=== PATIENT | female | born 1935 | race Caucasian/White ===

== ENCOUNTER → 2018-07-09 08:09 | Outpatient (CLI) | payer OTHER, SELFPAY ==
[2018-07-09 09:07] LABS: Add Manual Diff / Slide Review NO; Basophils Absolute Auto 100 /uL (0-100); Basophils Percent Auto 0.9 % (0-2); Eosinophils Absolute Auto 200 /uL (0-450); Eosinophils Percent Auto 2.5 % (2-4); Hematocrit 37.8 % (36-46); Hemoglobin 12.6 g/dL (12.0-16.0); Lymphocytes Absolute Auto 1200 /uL (1100-4500); Lymphocytes Percent Auto 20.7 % (25-40); Mean Corpuscular HGB Conc 33.4 % (30-36); Mean Corpuscular Hemoglobin 32.3 PG (26-34); Mean Corpuscular Volume 96.8 fL (80-100); Monocytes Absolute Auto 400 /uL (0-900); Neutrophils Absolute Auto 4200 /uL (1500-7000); Neutrophils Percent Auto 69.9 % (50-75); Platelet Count 195 X10^3/uL (150-400); Red Blood Cell Count 3.91 X10^6/uL (4.0-5.2); Red Cell Distribution Width 14.2 % (11.6-14.8)
[2018-07-09 09:10] LABS: Hemoglobin A1C% w Est Avg Glu 5.6 % (4.0-6.0)
[2018-07-09 09:49] LABS: Alanine Aminotransferase 17 IU/L (9-52); Albumin 4.1 g/dL (3.5-5.0); Albumin Globulin Ratio 1.3 (1.0-2.8); Alkaline Phosphatase 61 U/L (38-126); Aspartate Aminotransferase 28 IU/L (14-36); Bilirubin Total 1.7 mg/dL (0.2-1.3); Blood Urea Nitrogen 21 mg/dL (7-17); Calcium 9.4 mg/dL (8.4-10.2); Carbon Dioxide 32 mmol/L (22-32); Chloride 100 mmol/L (98-107); Cholesterol 129 mg/dL (140-199); Estimated Glomerular Filt Rate > 60.0 mL/min (>60); Globulin 3.1 g/dL (1.7-4.1); Glucose 87 mg/dL (80-110); HDL Cholesterol 58 mg/dL (40-60); HEMOLYSIS < 15 (0-50); LDL Cholesterol Calculated 58 mg/dL (<100); Potassium 3.4 mmol/L (3.4-5.1); Sodium 140 mmol/L (137-145); Total Protein 7.2 g/dL (6.3-8.2); Triglycerides 67 mg/dL (35-150)
== END ==
PROVIDERS: PCP Family Medicine; Visit Provider Family Medicine
DX: I10 Essential (primary) hypertension (principal); I63.9 Cerebral infarction, unspecified; I69.351 Hemiplegia and hemiparesis following cerebral infarction affecting right dominant side
CPT/HCPCS: 36415; 80053; 80061; 83036; 84443; 85025

== ENCOUNTER → 2018-11-16 15:06 | Outpatient (CLI) | payer OTHER, SELFPAY | PROVIDERS: PCP Family Medicine; Visit Provider Family Medicine | DX: R35.0 Frequency of micturition (principal) | CPT/HCPCS: 87077; 87086; 87147 ==

== ENCOUNTER → 2018-12-07 14:49 | Outpatient (CLI) | payer OTHER, SELFPAY ==
[2018-12-07 15:22] LABS: Hematocrit 36.9 % (36-46); Hemoglobin 12.6 g/dL (12.0-16.0); Mean Corpuscular HGB Conc 34.1 % (30-36); Mean Corpuscular Hemoglobin 32.8 PG (26-34); Platelet Count 213 X10^3/uL (150-400); Red Blood Cell Count 3.84 X10^6/uL (4.0-5.2); White Blood Cell Count 5.2 X10^3/uL (4.5-11.0)
[2018-12-07 15:23] LABS: Appearance Urine UA CLEAR; Bilirubin Urine UA NEGATIVE (NEGATIVE); Color Urine UA YELLOW; Glucose Urine UA NEGATIVE (Negative); Ketones Urine UA TRACE (NEGATIVE); Leukocyte Esterase Urine UA TRACE (NEGATIVE); Nitrite Urine UA NEGATIVE (Negative); Occult Blood Urine UA NEGATIVE (Negative); Protein Urine UA NEGATIVE (Negative); Specific Gravity Urine UA 1.015 (1.000-1.035)
[2018-12-07 15:35] LABS: pH Urine UA 6.5 (4.5-8.0)
[2018-12-07 15:36] LABS: Bacteria Urine Occasional (0-1); Culture Indicated Urine Cult Not Indicated; RBC Urine 1-5/HPF (0-5/HPF); Squamous Epithelial Cell Urine 0-1 /HPF (0-5/HPF); WBC Urine 1-5/HPF (0-5/HPF)
[2018-12-07 15:52] LABS: Neutrophils Absolute Manual 2912 /uL (3000-5900); RBC Morphology Normal Morphology; Total Cells Counted 100
[2018-12-07 16:06] LABS: Alanine Aminotransferase 20 IU/L (9-52); Albumin 4.1 g/dL (3.5-5.0); Albumin Globulin Ratio 1.5 (1.0-2.8); Alkaline Phosphatase 64 U/L (38-126); Aspartate Aminotransferase 28 IU/L (14-36); Bilirubin Total 1.6 mg/dL (0.2-1.3); Blood Urea Nitrogen 24 mg/dL (7-17); Calcium 9.7 mg/dL (8.4-10.2); Carbon Dioxide 33 mmol/L (22-32); Chloride 100 mmol/L (98-107); Cholesterol 121 mg/dL (140-199); Estimated Glomerular Filt Rate > 60.0 mL/min (>60); Globulin 2.8 g/dL (1.7-4.1); Glucose 98 mg/dL (80-110); HDL Cholesterol 63 mg/dL (40-60); HEMOLYSIS < 15 (0-50); LDL Cholesterol Calculated 41 mg/dL (<100); Potassium 3.1 mmol/L (3.4-5.1); Sodium 139 mmol/L (137-145); Total Protein 6.9 g/dL (6.3-8.2); Triglycerides 87 mg/dL (35-150)
[2018-12-07 16:44] LABS: TSH w/ Reflex to FT4 1.18 uIU/mL (0.47-4.68)
== END ==
PROVIDERS: PCP Family Medicine; Visit Provider Family Medicine
DX: R30.0 Dysuria (principal); I10 Essential (primary) hypertension; I63.9 Cerebral infarction, unspecified; I69.351 Hemiplegia and hemiparesis following cerebral infarction affecting right dominant side
CPT/HCPCS: 36415; 80053; 80061; 81003; 81015; 84443; 85025

== ENCOUNTER → 2018-12-15 15:03 | Outpatient (CLI) | payer OTHER, SELFPAY ==
[2018-12-15 16:36] LABS: BUN Creatinine Ratio 36.3 (6-22); Blood Urea Nitrogen 29 mg/dL (7-17); Carbon Dioxide 31 mmol/L (22-32); Chloride 102 mmol/L (98-107); Estimated Glomerular Filt Rate > 60.0 mL/min (>60); Glucose 102 mg/dL (80-110); HEMOLYSIS < 15 (0-50); Potassium 4.6 mmol/L (3.4-5.1); Sodium 140 mmol/L (137-145)
== END ==
PROVIDERS: PCP Family Medicine; Visit Provider Family Medicine
DX: E87.6 Hypokalemia (principal)
CPT/HCPCS: 36415; 80048

== ENCOUNTER → 2018-12-22 14:53 | Outpatient (CLI) | payer OTHER, SELFPAY ==
[2018-12-22 16:02] LABS: HEMOLYSIS < 15 (0-50); Potassium 4.8 mmol/L (3.4-5.1)
== END ==
PROVIDERS: PCP Family Medicine; Visit Provider Family Medicine
DX: E87.6 Hypokalemia (principal)
CPT/HCPCS: 36415; 84132

== ENCOUNTER → 2019-08-10 15:10 | Outpatient (CLI) | payer MEDICARE, SELFPAY | PROVIDERS: PCP Family Medicine; Visit Provider Family Medicine | DX: R10.30 Lower abdominal pain, unspecified (principal) | CPT/HCPCS: 87086 ==

== ENCOUNTER → 2020-05-19 10:35 | Outpatient (CLI) | payer MEDICARE, SELFPAY ==
[2020-05-19] MEDS: COVID-19 VACC, Ad26(JANSSEN)/PF 0.5 ML IM (10:43)
== END ==
PROVIDERS: PCP Family Medicine; Visit Provider Internal Medicine
DX: Z23 Encounter for immunization (principal)
CPT/HCPCS: 0031A; 91303

== ENCOUNTER 2020-10-09 04:44 | Emergency (ER) | payer MEDICARE, SELFPAY ==
[2020-10-09] VITALS (11 sets, daily range): BP systolic 107–136; BP diastolic 55–67; PULSE 72–102; RESP 15; TEMP 36.2; O2SAT 93–95; BMI 29.9
--- NOTE | 2020-10-09 04:46 | ED_ITS ---
HPI - Nausea/Vomiting/Diarrhea <Claude Brock, DO - Last Filed: 10/10/20 03:16> General Chief complaint: Nausea/Vomiting/Diarrhea Stated complaint: N/V for 6 hours, some diarrhea Time Seen by Provider: 10/09/20 04:45 History of Present Illness HPI Narrative: 85-year-old female former smoker with history of hypertension, stroke, hyperlipidemia presents with nausea and vomiting for the past 6 hours. She had been in her normal state of health and denies any new medications or dietary change. She went to bed feeling well and awoke with multiple episodes of nausea and vomiting of yellowish emesis. There has been no blood or coffee- ground appearance. She has had no pain. She has become profoundly weak and fatigued and requires significant assistance getting into the car and into the wheelchair. She did have an episode or 2 of diarrhea as well. She has had no fever chills nor chest pain or shortness of breath. She denies dysuria, frequency or urgency. Related Data Home Medications Medication Instructions Recorded Confirmed tcnurooh-[id number]-[id number] acid 0.4 1 tab PO DAILY 07/07/18 06/23/20 mg-lycopene 300 mcg-lutein 250 mcg tablet (Centrum Silver) Previous Rx's Medication Instructions Recorded aspirin 325 mg tablet,delayed See Rx Instructions .ROUTE 03/16/19 release .COMPLEX #90 tablet amlodipine 10 mg tablet 10 mg PO DAILY #90 tab 12/13/19 atorvastatin 20 mg tablet See Rx Instructions .ROUTE 12/27/19 .COMPLEX #90 tablet hydrochlorothiazide 25 mg tablet See Rx Instructions .ROUTE 01/10/20 .COMPLEX #90 tablet metoprolol succinate 50 mg See Rx Instructions .ROUTE 02/14/20 tablet,extended release 24 hr .COMPLEX #90 tablet losartan 50 mg tablet 100 mg PO DAILY #180 tab 03/20/20 polyethylene glycol 3350 17 See Rx Instructions PO QDAY #850 06/26/20 gram/dose oral powder (Miralax) gram trazodone 50 mg tablet See Rx Instructions .ROUTE 09/25/20 .COMPLEX #30 tab hydrocodone 5 mg-acetaminophen 325 See Rx Instructions .ROUTE 09/26/20 mg tablet .COMPLEX #120 tab ondansetron 4 mg disintegrating 4 mg PO Q6H PRN #5 tab 10/09/20 tablet Allergies Allergy/AdvReac Type Severity Reaction Status Date / Time adhesive Allergy Mild BLISTERS Verified 06/23/20 15:58 lisinopril Allergy Mild COUGHING Verified 06/23/20 15:58 ether AdvReac Mild VOMITING Verified 06/23/20 15:58 meperidine AdvReac Mild ITCHING Verified 06/23/20 15:58 phytonadione (vitamin K1) AdvReac Mild VOMITING/IT Verified 06/23/20 15:58 [phytonadione] DAVION Review of Systems <Claude Brock DO - Last Filed: 10/10/20 03:16> Review of Systems Narrative: GENERAL: See HPI HEENT: Denies sinus pain, ear pain, sore throat, difficulty swallowing, dizziness. RESPIRATORY: Denies dyspnea, cough, wheezing, hemoptysis, sputum. CARDIOVASCULAR: Denies chest pain, palpitations, orthopnea, edema, GASTROINTESTINAL: See HPI : Denies dysuria, frequency, incontinence, hematuria, urinary retention. MUSCULOSKELETAL: denies weakness, joint pain, or bony pain SKIN: Denies rash, skin lesions, or other NEUROLOGIC: Denies weakness, headache, numbness, change in speech, confusion, se izures, incoordination. PSYCHIATRIC: No concerning psychosocial issues. 12 point review of systems is negative except for those stated above Patient History <DO Shane Morrison Last Filed: 10/10/20 03:16> Medical History Cervical spine disease GERD (gastroesophageal reflux disease) Hiatal hernia Hyperlipidemia Hypertension Insomnia Lumbar spine pain Surgical History H/O arthroscopy of right knee S/P total abdominal hysterectomy and bilateral salpingo-oophorectomy Status post laminectomy Family History Brother Cancer Father Lung cancer Mother Rectal cancer Social History marital status: Smoking Status: Former smoker alcohol intake: current substance use type: does not use Smoking Status: Former smoker Exam <Claude Brock DO - Last Filed: 10/10/20 03:16> Narrative Exam Narrative: GENERAL: [85] year old patient appears stated age. Well- developed patient, in mild distress. Ill-appearing, significantly weak requires to person assistance for ambulating from wheelchair HEAD: Atraumatic. Normocephalic. EYES: Pupils equal round and reactive. Extraocular motions intact. No scleral icterus. No injection or drainage. ENT: Dry mucous membranes Nose without bleeding, purulent drainage. Throat without erythema, tonsillar hypertrophy or exudate. Airway patent. NECK: Trachea midline. Non tender CARDIOVASCULAR: Regular rate and rhythm without murmurs, gallops, or rubs. RESPIRATORY: Clear to auscultation. Breath sounds equal bilaterally. No wheezes, rales, or rhonchi. GASTROINTESTINAL: Abdomen soft, non-tender, nondistended. EXTREMITIES: No edema or joint tenderness. BACK: Nontender without deformity or crepitance. No flank tenderness. NEURO: AOx3. SKIN: No rash or erythema of visible areas Initial Vital Signs Initial Vital Signs: Vital Signs Temperature 97.2 F L 10/09/20 04:53 Pulse Rate 82 10/09/20 04:53 Respiratory Rate 15 10/09/20 04:53 Blood Pressure 136/65 10/09/20 04:53 Pulse Oximetry 95 10/09/20 04:53 <Shanti Rodriguez, DO - Last Filed: 10/09/20 19:32> Initial Vital Signs Initial Vital Signs: Vital Signs Temperature 97.2 F L 10/09/20 04:53 Pulse Rate 82 10/09/20 04:53 Respiratory Rate 15 10/09/20 04:53 Blood Pressure 136/65 10/09/20 04:53 Pulse Oximetry 95 10/09/20 04:53 Course <Claude Brock, DO - Last Filed: 10/10/20 03:16> Orders Ordered: Discontinued Medications Sodium Chloride (Normal Saline 0.9%) 500 mls @ 1,000 mls/hr IV BOLUS ONE Stop: 10/09/20 05:22 Last Infusion: 10/09/20 09:00 Dose: 0 mls/hr Documented by: Admin: 10/09/20 05:21 Dose: 1,000 mls/hr Documented by: CTRJUSTYNA Pantoprazole Sodium (Pantoprazole 40 Mg Vial) 20 mg IV NOW ONE Stop: 10/09/20 06:31 Last Admin: 10/09/20 06:43 Dose: 20 mg Documented by: [email or web address] Vital Signs Vital signs: Vital Signs - 8 hr 10/09/20 04:53 10/09/20 05:16 10/09/20 05:25 Temperature 97.2 F L Pulse Rate 82 80 79 Respiratory Rate 15 Blood Pressure 136/65 127/59 L Pulse Oximetry 95 93 95 10/09/20 05:30 Temperature Pulse Rate 79 Respiratory Rate Blood Pressure 125/59 L Pulse Oximetry 93 <Shanti Rodriguez, DO - Last Filed: 10/09/20 19:32> Orders Ordered: Discontinued Medications Sodium Chloride (Normal Saline 0.9%) 500 mls @ 1,000 mls/hr IV BOLUS ONE Stop: 10/09/20 05:22 Last Infusion: 10/09/20 09:00 Dose: 0 mls/hr Documented by: Admin: 10/09/20 05:21 Dose: 1,000 mls/hr Documented by: CTRJUSTYNA Pantoprazole Sodium (Pantoprazole 40 Mg Vial) 20 mg IV NOW ONE Stop: 10/09/20 06:31 Last Admin: 10/09/20 06:43 Dose: 20 mg Documented by: CTRJUSTYNA Reevaluation(s) Reevaluation #1: Patient feeling much better in the department. She was able to tolerate orals. She has ambulated several times. She has ambulated to the bathroom. She would like to return home. Patient's daughter is also at bedside. All questions were answered reviewed her labs as well as imaging today and I also saw and evaluated the patient independently myself after sign-out from Dr. Brock. Vital Signs Vital signs: Vital Signs - 8 hr 10/09/20 04:53 10/09/20 05:16 10/09/20 05:25 Temperature 97.2 F L Pulse Rate 82 80 79 Respiratory Rate 15 Blood Pressure 136/65 127/59 L Pulse Oximetry 95 93 95 10/09/20 05:30 Temperature Pulse Rate 79 Respiratory Rate Blood Pressure 125/59 L Pulse Oximetry 93 MDM - Nausea/Vomiting/Diarrhea <Claude Brock DO - Last Filed: 10/10/20 03:16> Lab Data Result diagrams: 10/09/20 04:55 10/09/20 04:55 Labs: Lab Results 10/09/20 10/09/20 10/09/20 Range/Units 04:55 04:55 05:15 WBC 8.3 (4.5-11.0) X10^3/uL RBC 4.18 (4.0-5.2) X10^6/uL Hgb 13.5 (12.0-16.0) g/dL Hct 40.1 (36-46) % MCV 95.8 (80-100) fL MCH 32.3 (26-34) PG MCHC 33.7 (30-36) % RDW 14.0 (11.6-14.8) % Plt Count 183 (150-400) X10^3/uL Neut % (Auto) 93.7 H (50-75) % Lymph % (Auto) 0.9 L (25-40) % [place] % (Auto) 4.9 (3-14) % Eos % (Auto) 0.3 L (2-4) % Baso % (Auto) 0.2 (0-2) % Neut # (Auto) 7800 H (7409-3362) /uL Lymph # (Auto) 100 L (9477-7113) /uL [place] # (Auto) 400 (0-900) /uL Eos # (Auto) 0 (0-450) /uL Baso # (Auto) 0 (0-100) /uL Sodium 139 (137-145) mmol/L Potassium 3.5 (3.4-5.1) mmol/L Chloride 104 (98-107) mmol/L Carbon Dioxide 29 (22-32) mmol/L BUN 34 H (7-17) mg/dL Creatinine 0.74 (0.52-1.04) mg/dL Estimated GFR > 60.0 (>60) mL/min BUN/Creatinine Ratio 45.9 H (6-22) Glucose 169 H (80-110) mg/dL Calcium 8.7 (8.4-10.2) mg/dL Magnesium 1.8 (1.6-2.3) mg/dL Total Bilirubin 1.8 H (0.2-1.3) mg/dL AST 30 (14-36) IU/L ALT 20 (<35) IU/L Alkaline Phosphatase 59 (38-126) U/L Total Protein 6.8 (6.3-8.2) g/dL Albumin 4.0 (3.5-5.0) g/dL Globulin 2.8 (1.7-4.1) g/dL Albumin/Globulin Ratio 1.4 (1.0-2.8) Lipase 63 (23-300) U/L Urine Color Urine Appearance Urine pH (4.5-8.0) Ur Specific [place] (1.000-1.035) Urine Protein (Negative) Urine Glucose (UA) (Negative) g/dL Urine Ketones (NEGATIVE) Urine Occult Blood (Negative) Urine Nitrate (Negative) Urine Bilirubin (NEGATIVE) Urine Urobilinogen (0.2) E.U./dL Ur Leukocyte Esterase (NEGATIVE) Urine RBC (0-5/HPF) Urine WBC (0-5/HPF) Urine Bacteria (None) Ur Culture Indicated? SARS-CoV-2 (PCR) Negative (Negative) 10/09/20 Range/Units 08:47 WBC (4.5-11.0) X10^3/uL RBC (4.0-5.2) X10^6/uL Hgb (12.0-16.0) g/dL Hct (36-46) % MCV (80-100) fL MCH (26-34) PG MCHC (30-36) % RDW (11.6-14.8) % Plt Count (150-400) X10^3/uL Neut % (Auto) (50-75) % Lymph % (Auto) (25-40) % [place] % (Auto) (3-14) % Eos % (Auto) (2-4) % Baso % (Auto) (0-2) % Neut # (Auto) (2398-3408) /uL Lymph # (Auto) (2356-7796) /uL [place] # (Auto) (0-900) /uL Eos # (Auto) (0-450) /uL Baso # (Auto) (0-100) /uL Sodium (137-145) mmol/L Potassium (3.4-5.1) mmol/L Chloride (98-107) mmol/L Carbon Dioxide (22-32) mmol/L BUN (7-17) mg/dL Creatinine (0.52-1.04) mg/dL Estimated GFR (>60) mL/min BUN/Creatinine Ratio (6-22) Glucose (80-110) mg/dL Calcium (8.4-10.2) mg/dL Magnesium (1.6-2.3) mg/dL Total Bilirubin (0.2-1.3) mg/dL AST (14-36) IU/L ALT (<35) IU/L Alkaline Phosphatase (38-126) U/L Total Protein (6.3-8.2) g/dL Albumin (3.5-5.0) g/dL Globulin (1.7-4.1) g/dL Albumin/Globulin Ratio (1.0-2.8) Lipase (23-300) U/L Urine Color Yellow Urine Appearance Clear Urine pH 6.5 (4.5-8.0) Ur Specific [place] <=1.005 (1.000-1.035) Urine Protein Negative (Negative) Urine Glucose (UA) Trace H (Negative) g/dL Urine Ketones Negative (NEGATIVE) Urine Occult Blood Trace-lysed (Negative) Urine Nitrate Negative (Negative) Urine Bilirubin Negative (NEGATIVE) Urine Urobilinogen 0.2 (0.2) E.U./dL Ur Leukocyte Esterase Negative (NEGATIVE) Urine RBC 1-5/hpf (0-5/HPF) Urine WBC None seen (0-5/HPF) Urine Bacteria None seen (None) Ur Culture Indicated? Cult not indicated SARS-CoV-2 (PCR) (Negative) <Shanti Rodriguez, DO - Last Filed: 10/09/20 19:32> Lab Data Labs: Lab Results 10/09/20 10/09/20 10/09/20 Range/Units 04:55 04:55 05:15 WBC 8.3 (4.5-11.0) X10^3/uL RBC 4.18 (4.0-5.2) X10^6/uL Hgb 13.5 (12.0-16.0) g/dL Hct 40.1 (36-46) % MCV 95.8 (80-100) fL MCH 32.3 (26-34) PG MCHC 33.7 (30-36) % RDW 14.0 (11.6-14.8) % Plt Count 183 (150-400) X10^3/uL Neut % (Auto) 93.7 H (50-75) % Lymph % (Auto) 0.9 L (25-40) % [place] % (Auto) 4.9 (3-14) % Eos % (Auto) 0.3 L (2-4) % Baso % (Auto) 0.2 (0-2) % Neut # (Auto) 7800 H (5842-9866) /uL Lymph # (Auto) 100 L (0547-2395) /uL [place] # (Auto) 400 (0-900) /uL Eos # (Auto) 0 (0-450) /uL Baso # (Auto) 0 (0-100) /uL Sodium 139 (137-145) mmol/L Potassium 3.5 (3.4-5.1) mmol/L Chloride 104 (98-107) mmol/L Carbon Dioxide 29 (22-32) mmol/L BUN 34 H (7-17) mg/dL Creatinine 0.74 (0.52-1.04) mg/dL Estimated GFR > 60.0 (>60) mL/min BUN/Creatinine Ratio 45.9 H (6-22) Glucose 169 H (80-110) mg/dL Calcium 8.7 (8.4-10.2) mg/dL Magnesium 1.8 (1.6-2.3) mg/dL Total Bilirubin 1.8 H (0.2-1.3) mg/dL AST 30 (14-36) IU/L ALT 20 (<35) IU/L Alkaline Phosphatase 59 (38-126) U/L Total Protein 6.8 (6.3-8.2) g/dL Albumin 4.0 (3.5-5.0) g/dL Globulin 2.8 (1.7-4.1) g/dL Albumin/Globulin Ratio 1.4 (1.0-2.8) Lipase 63 (23-300) U/L Urine Color Urine Appearance Urine pH (4.5-8.0) Ur Specific [place] (1.000-1.035) Urine Protein (Negative) Urine Glucose (UA) (Negative) g/dL Urine Ketones (NEGATIVE) Urine Occult Blood (Negative) Urine Nitrate (Negative) Urine Bilirubin (NEGATIVE) Urine Urobilinogen (0.2) E.U./dL Ur Leukocyte Esterase (NEGATIVE) Urine RBC (0-5/HPF) Urine WBC (0-5/HPF) Urine Bacteria (None) Ur Culture Indicated? SARS-CoV-2 (PCR) Negative (Negative) 10/09/20 Range/Units 08:47 WBC (4.5-11.0) X10^3/uL RBC (4.0-5.2) X10^6/uL Hgb (12.0-16.0) g/dL Hct (36-46) % MCV (80-100) fL MCH (26-34) PG MCHC (30-36) % RDW (11.6-14.8) % Plt Count (150-400) X10^3/uL Neut % (Auto) (50-75) % Lymph % (Auto) (25-40) % [place] % (Auto) (3-14) % Eos % (Auto) (2-4) % Baso % (Auto) (0-2) % Neut # (Auto) (1701-9574) /uL Lymph # (Auto) (8720-3448) /uL [place] # (Auto) (0-900) /uL Eos # (Auto) (0-450) /uL Baso # (Auto) (0-100) /uL Sodium (137-145) mmol/L Potassium (3.4-5.1) mmol/L Chloride (98-107) mmol/L Carbon Dioxide (22-32) mmol/L BUN (7-17) mg/dL Creatinine (0.52-1.04) mg/dL Estimated GFR (>60) mL/min BUN/Creatinine Ratio (6-22) Glucose (80-110) mg/dL Calcium (8.4-10.2) mg/dL Magnesium (1.6-2.3) mg/dL Total Bilirubin (0.2-1.3) mg/dL AST (14-36) IU/L ALT (<35) IU/L Alkaline Phosphatase (38-126) U/L Total Protein (6.3-8.2) g/dL Albumin (3.5-5.0) g/dL Globulin (1.7-4.1) g/dL Albumin/Globulin Ratio (1.0-2.8) Lipase (23-300) U/L Urine Color Yellow Urine Appearance Clear Urine pH 6.5 (4.5-8.0) Ur Specific [place] <=1.005 (1.000-1.035) Urine Protein Negative (Negative) Urine Glucose (UA) Trace H (Negative) g/dL Urine Ketones Negative (NEGATIVE) Urine Occult Blood Trace-lysed (Negative) Urine Nitrate Negative (Negative) Urine Bilirubin Negative (NEGATIVE) Urine Urobilinogen 0.2 (0.2) E.U./dL Ur Leukocyte Esterase Negative (NEGATIVE) Urine RBC 1-5/hpf (0-5/HPF) Urine WBC None seen (0-5/HPF) Urine Bacteria None seen (None) Ur Culture Indicated? Cult not indicated SARS-CoV-2 (PCR) (Negative) Imaging Data CT scan - abdomen/pelvis: Radiologist's Impression: Prominent fluid distended small bowel throughout the abdomen, potentially reflecting enteritis. No discrete transition point to suggest obstruction. Large hiatal hernia with fluid distended stomach above the diaphragm. MDM Narrative Medical decision making narrative: Patient signed out to myself by Dr. Brock, patient was seen and evaluated in bili by myself. Patient labs, vital signs are reassuring. Patient's CT shows possible enteritis and a large hiatal hernia with fluid distended stomach but the hemidiaphragm. Patient is feeling somewhat better and after oral challenge, patient discharged home with a short course of antinausea medication with return precautions. Patient has improved significantly here in the department and is feeling much better and is requesting to return home. Discharge Plan Departure Patient Disposition: Home Clinical Impression: Nausea vomiting and diarrhea Instructions: DI for Vomiting -- Adult Activity Restrictions/Additional Instructions: Follow-up with your physician in the next 1-2 days for recheck if you are not continuing to improve significantly. You may take Zofran 1 tablet every 6 hours as needed for nausea Prescription sent to [facility] in [place]. Advanced your diet as tolerated. Start with small sips of water if you are tolerating this well this well into this afternoon then I would ask that you start to take some clear solids. If this is being tolerated well you may a dvance to more solid foods. Please return for fevers, lightheadedness or passing out, new or worsening chest pain, abdominal pain, persistent vomiting, black or bloody stools or other new or concerning symptoms. Prescriptions: New ondansetron 4 mg tablet,disintegrating 4 mg PO Q6H PRN (Reason: nausea and vomiting) Qty: 5 RF: 0 No Action Centrum Silver 0.4-300-250 mg-mcg-mcg tablet 1 tab PO DAILY RF: 0 aspirin 325 mg tablet,delayed release (DR/EC) See Rx Instructions .ROUTE .COMPLEX Qty: 90 RF: 1 amlodipine 10 mg tablet 10 mg PO DAILY Qty: 90 RF: 3 atorvastatin 20 mg tablet See Rx Instructions .ROUTE .COMPLEX Qty: 90 RF: 3 hydrochlorothiazide 25 mg tablet See Rx Instructions .ROUTE .COMPLEX Qty: 90 RF: 3 metoprolol succinate 50 mg tablet extended release 24 hr See Rx Instructions .ROUTE .COMPLEX Qty: 90 RF: 3 losartan 50 mg tablet 100 mg PO DAILY Qty: 180 RF: 3 polyethylene glycol 3350 [Miralax] 17 gram/dose powder See Rx Instructions PO QDAY Qty: 850 RF: 5 trazodone 50 mg tablet See Rx Instructions .ROUTE .COMPLEX Qty: 30 RF: 2 hydrocodone-acetaminophen 5-325 mg tablet See Rx Instructions .ROUTE .COMPLEX Qty: 120 RF: 0 Referrals: Leta Christine MD [Primary Care Provider] -
--- NOTE | 2020-10-09 04:54 | DI.RAD.S_ITS ---
PROCEDURE: XR ABDOMEN MIN 2V INDICATIONS: N/V TECHNIQUE: 2 views of the abdomen were acquired. COMPARISON: [facility], CT, CT ABDOMEN PELVIS W CON, 10/09/2020, 5:48. FINDINGS: Surgical changes and devices: None. Bowel: No pneumoperitoneum. Mild scattered bowel gas. No dilated loops identified. Prominent stool in the distal colon. Soft tissues: No masses; visualized solid organ contours appear normal in size. No suspicious abdominal calcifications. Calcified aorta. Bones: No suspicious bony abnormalities. Severe scoliosis. Lung bases appear clear. Large hiatal hernia. IMPRESSION: No obvious dilated loops of bowel identified. Prominent stool in the distal colon. Large hiatal hernia. No significant discrepancy with the overnight preliminary interpretation. Dictated by: Joe Lopez M.D. on 10/09/2020 at 8:04 Approved by: Joe Lopez M.D. on 10/09/2020 at 8:08
[2020-10-09 05:06] LABS: Add Manual Diff / Slide Review NO; Basophils Absolute Auto 0 /uL (0-100); Basophils Percent Auto 0.2 % (0-2); Eosinophils Absolute Auto 0 /uL (0-450); Eosinophils Percent Auto 0.3 % (2-4); Hematocrit 40.1 % (36-46); Hemoglobin 13.5 g/dL (12.0-16.0); Lymphocytes Absolute Auto 100 /uL (1100-4500); Lymphocytes Percent Auto 0.9 % (25-40); Mean Corpuscular HGB Conc 33.7 % (30-36); Mean Corpuscular Hemoglobin 32.3 PG (26-34); Mean Corpuscular Volume 95.8 fL (80-100); Monocytes Absolute Auto 400 /uL (0-900); Monocytes Percent Auto 4.9 % (3-14); Neutrophils Absolute Auto 7800 /uL (1500-7000); Neutrophils Percent Auto 93.7 % (50-75); Platelet Count 183 X10^3/uL (150-400); Red Blood Cell Count 4.18 X10^6/uL (4.0-5.2); White Blood Cell Count 8.3 X10^3/uL (4.5-11.0)
[2020-10-09 05:15] LABS: Alanine Aminotransferase 20 IU/L (<35); Albumin Globulin Ratio 1.4 (1.0-2.8); Alkaline Phosphatase 59 U/L (38-126); Aspartate Aminotransferase 30 IU/L (14-36); BUN Creatinine Ratio 45.9 (6-22); Bilirubin Total 1.8 mg/dL (0.2-1.3); Blood Urea Nitrogen 34 mg/dL (7-17); Calcium 8.7 mg/dL (8.4-10.2); Carbon Dioxide 29 mmol/L (22-32); Chloride 104 mmol/L (98-107); Estimated Glomerular Filt Rate > 60.0 mL/min (>60); Globulin 2.8 g/dL (1.7-4.1); Glucose 169 mg/dL (80-110); HEMOLYSIS < 15 (0-50); Lipase 63 U/L (23-300); Magnesium 1.8 mg/dL (1.6-2.3); Potassium 3.5 mmol/L (3.4-5.1); Sodium 139 mmol/L (137-145); Total Protein 6.8 g/dL (6.3-8.2)
[2020-10-09] MEDS: SODIUM CHLORIDE 0.9% 500 ML 1000 ML IV (05:21)
--- NOTE | 2020-10-09 05:27 | DI.CT.S_ITS ---
PROCEDURE: CT ABDOMEN PELVIS W CON INDICATIONS: N/V, weak TECHNIQUE: After the administration of intravenous contrast, axial sections acquired from the lung bases to the pubic symphysis. Coronal and sagittal reformats were performed. For radiation dose reduction, the following was used: automated exposure control, adjustment of mA and/or kV according to patient size. COMPARISON: [facility], , CHEST 2 VIEW, 02/10/2017, 12:12. FINDINGS: Image quality: Excellent. Lung bases: Right middle lobe and lower lobe atelectasis. There is a large hiatal hernia. Heart: Heart size is normal. There is a moderate to severe coronary artery calcification. ABDOMEN: Liver: Unremarkable. Gallbladder: Gallbladder may contain sludge. No gallbladder wall thickening or pericholecystic fluid. Biliary ducts: Unremarkable. Pancreas: Unremarkable. Spleen: Unremarkable. Adrenal Glands: Unremarkable. Kidneys and Ureters: Unremarkable. Stomach and Bowel: Fluid-filled stomach and small intestine demonstrates normal caliber. There is a large amount of stool in colon. Peritoneum: No abnormal intraperitoneal fluid. No free air. Ventral Wall: No hernias. Abdominal Nodes: No retroperitoneal or mesenteric adenopathy by size criteria. Vessels: Aorta and inferior vena cava are normal in size. Severe atherosclerotic calcifications. PELVIS: Pelvic Organs: Unremarkable. Bladder: Unremarkable. Pelvic Nodes: No enlarged lymph nodes. Miscellaneous: No hernias are seen. Bones: Unremarkable. Scoliosis and severe degenerative changes in lumbar spine. IMPRESSION: 1. Fluid filled stomach and small intestine. This finding is nonspecific and may be secondary to gastroenteritis. No CT findings to suggest small bowel obstruction. 2. Large hiatal hernia. 3. Severe atherosclerosis. No significant discrepancy with the corporate concierge radiology preliminary report. Dictated by: Elina Burrell M.D. on 10/09/2020 at 8:14 Approved by: Elina Burrell M.D. on 10/09/2020 at 8:23
[2020-10-09 06:30] LABS: COVID19 - ADMIT (NP swab/PCR) Negative (Negative)
[2020-10-09] MEDS: PANTOPRAZOLE 40 MG VIAL 20 MG IV (06:43)
[2020-10-09 08:56] LABS: Bacteria Urine None Seen; WBC Urine None Seen (0-5/HPF)
[2020-10-09 08:57] LABS: Appearance Urine UA CLEAR; Bilirubin Urine UA NEGATIVE (NEGATIVE); Color Urine UA YELLOW; Glucose Urine UA TRACE g/dL (Negative); Ketones Urine UA NEGATIVE (NEGATIVE); Leukocyte Esterase Urine UA NEGATIVE (NEGATIVE); Nitrite Urine UA NEGATIVE (Negative); Occult Blood Urine UA TRACE-LYSED (Negative); Protein Urine UA NEGATIVE (Negative); Specific Gravity Urine UA <=1.005 (1.000-1.035); Urobilinogen Urine UA 0.2 E.U./dL (0.2); pH Urine UA 6.5 (4.5-8.0)
[2020-10-09 09:03] LABS: Culture Indicated Urine Cult Not Indicated; RBC Urine 1-5/HPF (0-5/HPF)
== END 2020-10-09 10:03 | disposition home or self-care (01) ==
PROVIDERS: Emergency Medicine; Emergency Provider Emergency Medicine; PCP Family Medicine
DX: R11.2 Nausea with vomiting, unspecified (principal); R19.7 Diarrhea, unspecified; R79.89 Other specified abnormal findings of blood chemistry; Z20.822 Contact with and (suspected) exposure to COVID-19
CPT/HCPCS: 36415; 74019; 74177; 80053; 81001; 83690; 83735; 85025; 87635; 96361; 96374; 99284; C9803; C9113; Q9967

== ENCOUNTER → 2021-07-23 11:41 | Outpatient (CLI) | payer MEDICARE, SELFPAY ==
[2021-07-23 19:27] LABS: Alanine Aminotransferase 13 IU/L (<35); Albumin 3.9 g/dL (3.5-5.0); Albumin Globulin Ratio 1.3 (1.0-2.8); Alkaline Phosphatase 71 U/L (38-126); Aspartate Aminotransferase 26 IU/L (14-36); Bilirubin Total 1.5 mg/dL (0.2-1.3); Blood Urea Nitrogen 20 mg/dL (7-17); Calcium 9.5 mg/dL (8.4-10.2); Carbon Dioxide 31 mmol/L (22-32); Chloride 101 mmol/L (98-107); Cholesterol 121 mg/dL (140-199); Estimated Glomerular Filt Rate > 60 mL/min (>60); Glucose 102 mg/dL (80-110); HDL Cholesterol 59 mg/dL (40-60); HEMOLYSIS < 15 (0-50); LDL Cholesterol Calculated 45 mg/dL (<100); Potassium 3.9 mmol/L (3.4-5.1); Sodium 139 mmol/L (137-145); Total Protein 6.9 g/dL (6.3-8.2); Triglycerides 85 mg/dL (35-150)
== END ==
PROVIDERS: PCP Family Medicine; Visit Provider Family Medicine
DX: E78.2 Mixed hyperlipidemia (principal); G89.4 Chronic pain syndrome; I10 Essential (primary) hypertension; I69.351 Hemiplegia and hemiparesis following cerebral infarction affecting right dominant side; R29.810 Facial weakness; Z71.85 Encounter for immunization safety counseling; Z86.73 Personal history of transient ischemic attack (TIA), and cerebral infarction without residual deficits
CPT/HCPCS: 80053; 80061

== ENCOUNTER → 2022-07-08 09:27 | Outpatient (CLI) | payer MEDICARE, SELFPAY ==
[2022-07-08 19:37] LABS: HEMOLYSIS < 15 (0-50)
[2022-07-08 19:46] LABS: BUN Creatinine Ratio 29.9 (6-22); Blood Urea Nitrogen 23 mg/dL (7-17); Carbon Dioxide 30 mmol/L (22-32); Chloride 104 mmol/L (98-107); Cholesterol 129 mg/dL (140-199); Estimated Glomerular Filt Rate > 60 mL/min (>60); Glucose 90 mg/dL (80-110); HDL Cholesterol 54 mg/dL (40-60); Hematocrit 30.8 % (36-46); Hemoglobin 10.3 g/dL (12.0-16.0); LDL Cholesterol Calculated 61 mg/dL (<100); Mean Corpuscular HGB Conc 33.3 % (30-36); Mean Corpuscular Hemoglobin 29.4 PG (26-34); Mean Corpuscular Volume 88.3 fL (80-100); Platelet Count 155 X10^3/uL (150-400); Potassium 3.7 mmol/L (3.4-5.1); Red Blood Cell Count 3.49 X10^6/uL (4.0-5.2); Red Cell Distribution Width 15.2 % (11.6-14.8); Sodium 141 mmol/L (137-145); Triglycerides 68 mg/dL (35-150); White Blood Cell Count 6.3 X10^3/uL (4.5-11.0)
[2022-07-08 20:13] LABS: TSH w/ Reflex to FT4 1.98 uIU/mL (0.47-4.68)
[2022-07-08 20:31] LABS: Neutrophils Absolute Manual 4158 /uL (3000-5900); Total Cells Counted 100
[2022-07-08 20:32] LABS: RBC Morphology Normal Morphology
[2022-07-09 16:11] LABS: Vitamin B12 507 pg/mL (239-931)
[2022-07-10 05:13] LABS: Labcorp Hemoglobin (Hb) A1c 5.9 % (4.8-5.6)
== END ==
PROVIDERS: PCP Family Medicine; Visit Provider Family Medicine
DX: Z79.891 Long term (current) use of opiate analgesic (principal); I10 Essential (primary) hypertension; Z86.73 Personal history of transient ischemic attack (TIA), and cerebral infarction without residual deficits; E78.2 Mixed hyperlipidemia; R20.0 Anesthesia of skin; G62.9 Polyneuropathy, unspecified
CPT/HCPCS: 80048; 80061; 82607; 83036; 84443; 85025

== ENCOUNTER → 2022-07-29 14:24 | Outpatient (CLI) | payer MEDICARE, SELFPAY | PROVIDERS: PCP Family Medicine; Visit Provider Physician Assistant | DX: N60.02 Solitary cyst of left breast (principal); N64.51 Induration of breast | CPT/HCPCS: 87070; 87075; 87205 ==

== ENCOUNTER → 2022-08-08 13:30 | Outpatient (CLI) | payer MEDICARE, SELFPAY ==
[2022-08-08 20:03] LABS: HEMOLYSIS < 15 (0-50); Iron 60 ug/dL (37-170)
[2022-08-08 20:17] LABS: Percent Iron Saturation 15 % (15-50); Total Iron Binding Capacity 408 ug/dL (265-497); Transferrin 294 mg/dL (206-381)
[2022-08-08 20:37] LABS: TSH w/ Reflex to FT4 1.38 uIU/mL (0.47-4.68)
[2022-08-08 21:00] LABS: Vitamin B12 592 pg/mL (239-931)
[2022-08-12 17:07] LABS: Fecal Immunochemical Test Positive (Negative)
[2022-08-13 14:22] LABS: Albumin 3.3 g/dL (2.9-4.4); Alpha-1-Globulin 0.3 g/dL (0.0-0.4); Alpha-2-Globulin 0.8 g/dL (0.4-1.0); Gamma Globulin 0.9 g/dL (0.4-1.8); Globulin Total 2.9 g/dL (2.2-3.9); Protein, Total 6.2 g/dL (6.0-8.5)
== END ==
PROVIDERS: PCP Family Medicine; Visit Provider Family Medicine
DX: D64.9 Anemia, unspecified (principal); R20.0 Anesthesia of skin; G62.9 Polyneuropathy, unspecified
CPT/HCPCS: 82274; 82607; 83540; 83550; 84155; 84165; 84443

== ENCOUNTER 2022-10-03 11:41 | Day surgery (SDC) | payer MEDICARE, SELFPAY ==
--- NOTE | 2022-10-03 | PATH_ITS ---
[facility] Accession Number: [id number] No. of containers..03 Tissue . 01 Material submitted: . PART A: duodenum bulb - DUODENAL BULB PART B: stomach - ANTRUM PART C: colon - TRANSVERSE COLON MASS . 01 Diagnosis: A. Duodenal Bulb, Biopsy: Mild active duodenitis; please see comment. Negative for granulomas, features of sprue, dysplasia or malignancy. . B. Gastric Antrum, Biopsy: Gastric antral mucosa with reactive gastropathy. Negative for Helicobacter organisms by immunohistochemistry. Negative for intestinal metaplasia. Negative for dysplasia or malignancy. . C. Transverse Colon Mass: Invasive adenocarcinoma, poorly differentiated, with medullary features. Lymphovascular invasion not identified. Loss of MLH1 and PMS2 nuclear expression by immunohistochemistry; please see below. . . C. IMMUNOHISTOCHEMISTRY TESTING FOR MISMATCH REPAIR PROTEINS: . MLH1: Loss of nuclear expression. MSH2: Intact nuclear expression. MSH6: Intact nuclear expression. PMS2: Loss of nuclear expression. Background nonneoplastic tissue/internal control with intact nuclear expression. . INTERPRETATION: Loss of nuclear expression of MLH1 and PMS2: testing for methylation of the MLH1 promoter and/or mutation of BRAF is indicated (the presence of a BRAF V600E mutation and/or MLH1 methylation suggests that the tumor is sporadic and germline evaluation is probably not indicated; absence of both MLH1 methylation and of BRAF V600E mutation suggests the possibility of Marie syndrome, and sequencing and/or large deletion/duplication testing of germline MLH1 may be indicated)* . * There are exceptions to the above IHC interpretations. These results should not be considered in isolation, and clinical correlation with genetic counseling is recommended to assess the need for germline testing. [facility] 10/14/2022 1742 Local . 01 Comment: A) The findings in the duodenal biopsy raise a differential diagnosis including infection, drug/toxin-induced injury, and peptic duodenitits. . C) Given the loss of MLH1 and PMS2 by immunohistochemistry, molecular studies for BRAF mutation and MLH1 promoter methylation will be performed, and results issued in an addendum. . As part of routine chemistry quality control technician, Dr. Hyman has reviewed this case and agrees with the diagnosis of adenocarcinoma with medullary features. The preliminary finding of malignancy was reported to Dr. Vital via MAXIMINO Guevara by Dr. Vázquez on 10/10/2022. . 01 Electronically signed: . Pineda Vázquez MD, PhD, Pathologist NPI- [id number] . 01 Gross description: . Part A: DUODENAL BULB: Received in formalin are 3 fragment(s) of pedroza, soft tissue measuring 0.1 x 0.1 x 0.1 cm to 0.3 x 0.2 x 0.1 cm submitted entirely in 1 cassette(s) Part B: ANTRUM: Received in formalin are 3 fragment(s) of pedroza, soft tissue measuring 0.2 x 0.2 x 0.1 cm to 0.5 x 0.3 x 0.2 cm submitted entirely in 1 cassette(s) Part C: TRANSVERSE COLON MASS: Received in formalin are multiple fragment of pedroza soft tissue measuring 1.3 x 1.3 x 0.8 cm in aggregate. Specimen is sectioned and submitted in its entirety in 2 cassettes. /CHRISTOPHER 10/08/2022 0033 Local . 01 Microscopic: . B. An immunohistochemical stain was performed to evaluate for Helicobacter organisms and is negative. The control stain showed appropriate reactivity. . C. Sections are of ulcerated colonic mucosa obliterated by a proliferation of epithelioid cells in a sheet-like and focally cribrifrom architecture. To further evaluate the malignant cells, a panel of immunohistochemical stains is performed (each with an appropriately positive control). The malignant cells are negative for synaptophysin and chromogranin immunoreactivity, essentially excluding a neuroendocrine carcinoma. The malignant cells are positive for JABARI/pancytokeratin, calretinin (variable), SATB2 and villin immuoreactivity, consistent with a poorly differentiated carcinoma of colonic origin with medullary features. Additionally, the malignant cells show loss of nuclear expression of MLH1 and PMS2, with intact MSH2 and MSH6 immunoreactivity. . * This test was developed and its performance characteristics determined by [employer]. It has not been cleared or approved by the U.S. Food and Drug Administration. The FDA has determined that such clearance or approval is not necessary. This test is used for clinical purposes. It should not be regarded as investigational or for research. . 01 Pathologist provided ICD-10: K29.80, K29.60, C18.4 . 01 CPT . 178036, 761918, 399718, M01077, Q42493 Specimen Comment: A courtesy copy of this report has been sent to [phone] Performed at: 01 [facility] [address] [place] [address] [id number] MD Grzegorz Hyman MD Phone: [phone]
[2022-10-03 12:08] VITALS: BMI 29.1
[2022-10-03 12:21] VITALS: BP 154/78; PULSE 84; RESP 16; TEMP 36.6; O2SAT 97
[2022-10-03] MEDS: LACTATED RINGERS 1,000 ML 150 ML IV (12:26)
--- NOTE | 2022-10-03 12:48 | P.HP_ITS ---
History of Present Illness History of Present Illness Date Patient Seen: 10/03/22 Time Patient Seen: 12:48 Chief complaint: NVC Narrative: Harmony is an 87-year-old woman who has fatigue, anemia and a positive fit test. Please see the office note from August 28 for details. [facility] Medical History Cervical spine disease GERD (gastroesophageal reflux disease) Hiatal hernia Hyperlipidemia Insomnia Lumbar spine pain Surgical History H/O arthroscopy of right knee S/P total abdominal hysterectomy and bilateral salpingo-oophorectomy Status post laminectomy Family History Brother Cancer Father Lung cancer Mother Rectal cancer Social History marital status: household members: family Smoking Status: Former smoker alcohol intake: current substance use type: does not use Meds Home Medications and Allergies Home Medications Medication Instructions Recorded Confirmed Type fleunwxb-ltp-juvit acid 0.4 1 tab PO DAILY 07/07/18 10/03/22 History mg-lycopene 300 mcg-lutein 250 mcg tablet (Centrum Silver) aspirin 325 mg tablet,delayed See Rx Instructions .Route 03/16/19 10/03/22 Rx release .COMPLEX #90 tabs polyethylene glycol 3350 17 See Rx Instructions PO QDAY #850 06/26/20 10/03/22 Rx gram/dose oral powder (Miralax) grams atorvastatin 20 mg tablet See Rx Instructions .Route 01/16/22 10/03/22 Rx .COMPLEX #90 tabs metoprolol succinate 50 mg See Rx Instructions .Route 01/28/22 10/03/22 Rx tablet,extended release 24 hr .COMPLEX #90 tabs amlodipine 10 mg tablet 10 mg PO DAILY #90 tabs 02/07/22 10/03/22 Rx losartan 50 mg tablet 100 mg PO DAILY #180 tabs 02/12/22 10/03/22 Rx clotrimazole-betamethasone 1 1 applic topical BID #45 grams 03/20/22 10/03/22 Rx %-0.05 % topical cream hydrocodone 5 mg-acetaminophen 325 See Rx Instructions PO BID PRN 10/02/22 10/03/22 Rx mg tablet pain #112 tabs Allergies Allergy/AdvReac Type Severity Reaction Status Date / Time adhesive Allergy Mild BLISTERS Verified 10/03/22 11:56 lisinopril Allergy Mild COUGHING Verified 10/03/22 11:56 ether AdvReac Mild VOMITING Verified 10/03/22 11:56 meperidine AdvReac Mild ITCHING Verified 10/03/22 11:56 phytonadione (vitamin K1) AdvReac Mild VOMITING/IT Verified 10/03/22 11:56 [phytonadione] DAVION vitamin k Allergy Unknown N & V Uncoded 08/28/22 10:47 Exam Vital Signs (past 8 hours): - 10/03/22 12:21 Temperature 97.9 F Pulse Rate 84 Respiratory Rate 16 Blood Pressure 154/78 H Pulse Oximetry 97 Oxygen Delivery Method Room Air Oxygen Delivery Method Room Air Const General: No acute distress Assessment & Plan Assessment and plan (1) Positive FIT (fecal immunochemical test): Status: Acute Plan We reviewed the risks and EGD and colonoscopy and she would like to proceed.
--- NOTE | 2022-10-03 14:01 | PM.OP.EC ---
Operative Date/Time/Diagnoses Date of procedure: 10/03/22 Time of procedure: 14:01 Pre-op diagnosis: Anemia Post-op diagnosis: same Procedure & Clinicians Study performed: EGD and colonoscopy Same procedure as scheduled: Yes Surgeon: Harley Vital Procedure Notes Procedure in detail: Surgeon: Harley Vital MD Anesthesia: Julien Fuentes CRNA Procedure in detail: A timeout was performed. A bite blocked was placed and monitors were attached to the patient. The patient was positioned in a left lateral decubitus position. Sedation was administered. Once the patient was sedated the endoscope was inserted through the bite block and passed through the esophagus and stomach and into the duodenum. There were multiple small ulcers in the duodenal bulb and antrum. Random biopsies were taken from the duodenal bulb and antrum. The endoscope was retroflexed and rather large hiatal hernia was noted but there were no ulcerations stomach associated. The endoscope was straightned and withdrawn into the esophagus. No other abnormalities were seen. Findings: Multiple small ulcers in the antrum and duodenal bulb and a large high hernia Next we repositioned the patient for a colonoscopy. A digital rectal exam was performed and was normal. The colonoscope was inserted and advanced to the cecum. The appendiceal orifice was identified and photographed. The scope was slowly withdrawn over greater than 6 minutes. There was a rather large mass in what appeared to be the proximal transverse colon. Tattoo ink was injected just proximal just distal to the mass. Multiple biopsies were taken with a hot snare and retrieved with a Kemp net or by suctioning. All were sent together as ?transverse colon mass?. No other abnormalities were seen throughout colon. The scope was retroflexed in the rectum and no other abnormalities were seen. Findings: A large transverse colon mass concerning for cancer EBL: 20 mL Scope withdrawal time: 20 minutes Sedation minutes: 53 minutes Post-procedure Disposition: PACU
[2022-10-03 14:02] VITALS: BP 117/66; PULSE 66; RESP 13; TEMP 37; O2SAT 95
[2022-10-03 14:07] VITALS: BP 119/65; PULSE 69; RESP 14; O2SAT 93
[2022-10-03 14:17] VITALS: BP 116/65; PULSE 69; RESP 14; TEMP 37; O2SAT 94
[2022-10-03 14:23] VITALS: BP 130/73; PULSE 76; RESP 14; TEMP 36.9; O2SAT 97
[2022-10-03 14:39] VITALS: BP 134/81; PULSE 76; RESP 18; O2SAT 97
[2022-10-03 14:47] LABS: Add Manual Diff / Slide Review NO; Basophils Absolute Auto 0 /uL (0-100); Basophils Percent Auto 0.8 % (0-2); Eosinophils Absolute Auto 0 /uL (0-450); Eosinophils Percent Auto 0.6 % (2-4); Hematocrit 32.1 % (36-46); Hemoglobin 10.9 g/dL (12.0-16.0); Lymphocytes Absolute Auto 900 /uL (1100-4500); Lymphocytes Percent Auto 15.9 % (25-40); Mean Corpuscular HGB Conc 33.8 % (30-36); Mean Corpuscular Hemoglobin 31.6 PG (26-34); Mean Corpuscular Volume 93.3 fL (80-100); Monocytes Absolute Auto 500 /uL (0-900); Monocytes Percent Auto 8.4 % (3-14); Neutrophils Absolute Auto 4000 /uL (1500-7000); Neutrophils Percent Auto 74.3 % (50-75); Platelet Count 172 X10^3/uL (150-400); Red Blood Cell Count 3.45 X10^6/uL (4.0-5.2); Red Cell Distribution Width 17.9 % (11.6-14.8); White Blood Cell Count 5.4 X10^3/uL (4.5-11.0)
[2022-10-03 15:01] LABS: Alanine Aminotransferase 21 IU/L (<35); Albumin 3.6 g/dL (3.5-5.0); Albumin Globulin Ratio 1.4 (1.0-2.8); Alkaline Phosphatase 83 U/L (38-126); Aspartate Aminotransferase 38 IU/L (14-36); BUN Creatinine Ratio 20.3 (6-22); Bilirubin Total 1.5 mg/dL (0.2-1.3); Blood Urea Nitrogen 12 mg/dL (7-17); Calcium 8.5 mg/dL (8.4-10.2); Carbon Dioxide 28 mmol/L (22-32); Chloride 103 mmol/L (98-107); Estimated Glomerular Filt Rate > 60 mL/min (>60); Globulin 2.6 g/dL (1.7-4.1); Glucose 93 mg/dL (80-110); HEMOLYSIS < 15 (0-50); Potassium 2.8 mmol/L (3.4-5.1); Sodium 140 mmol/L (137-145); Total Protein 6.2 g/dL (6.3-8.2)
[2022-10-03 15:32] LABS: Carcinoembryonic Antigen 1.9 ng/mL (0.1-3.0)
== END 2022-10-03 15:11 | disposition home or self-care (01) ==
PROVIDERS: PCP Family Medicine; Referring Provider Surgery; Visit Provider Surgery
PROC: 0DJ08ZZ Inspection of Upper Intestinal Tract, Via Natural or Artificial Opening Endoscopic (ICD-10-PCS; CPT 43235; principal; 2022-10-03 12:45)
PROC: 0DJD8ZZ Inspection of Lower Intestinal Tract, Via Natural or Artificial Opening Endoscopic (ICD-10-PCS; CPT 45378; 2022-10-03 12:45)
DX: C18.4 Malignant neoplasm of transverse colon (principal); D64.9 Anemia, unspecified; K25.9 Gastric ulcer, unspecified as acute or chronic, without hemorrhage or perforation; K44.9 Diaphragmatic hernia without obstruction or gangrene; K29.80 Duodenitis without bleeding; K31.9 Disease of stomach and duodenum, unspecified
CPT/HCPCS: 45381; 45385; 43239; 36415; 80053; 82378; 85025; J2704

== ENCOUNTER → 2022-10-10 11:52 | Outpatient (CLI) | payer MEDICARE, SELFPAY ==
--- NOTE | 2022-10-10 11:53 | DI.CT.S_ITS ---
PROCEDURE: CT CHEST ABD PEL W CON INDICATIONS: colon mass TECHNIQUE: After the administration of oral and intravenous contrast, axial sections acquired from the supraclavicular neck to the pubic symphysis. Coronal and sagittal reformats were performed. For radiation dose reduction, the following was used: automated exposure control, adjustment of mA and/or kV according to patient size. COMPARISON: [facility], CT, CT ABDOMEN PELVIS W CON, 10/09/2020, 5:48. FINDINGS: Image quality: Excellent. CHEST: Lower Neck: No enlarged lymph nodes. Thyroid: Within normal limits. Axillae: No enlarged lymph nodes. Chest Wall: Unremarkable. Lungs and Airways: No consolidation or suspicious nodules. Pleura: No pneumothorax or pleural effusions. Heart: Mild cardiomegaly. No pericardial effusion. Severe coronary artery calcifications. Thoracic Vessels: The aorta and pulmonary arteries demonstrate normal size. Mediastinum and Hedy: No enlarged lymph nodes. Esophagus: No wall thickening. Large hiatal hernia, as before.. ABDOMEN: Liver: Unremarkable. Gallbladder: Unremarkable. Biliary ducts: Unremarkable. Pancreas: Unremarkable. Spleen: Unremarkable. Adrenal Glands: Unremarkable. Kidneys and Ureters: Unremarkable. Stomach and Bowel: There is a focal area of thickening along the wall of the mid transverse colon with a degree of luminal narrowing which has an appearance suggesting possible combination of superficial small spreading and constricting colon cancer. No dilated loops proximal to this finding. Proximal to this there is moderately large fecal debris. There is also mild diffuse thickening of the wall of the ascending colon. Cannot exclude superficial spreading right colonic malignancy, as well. Findings are less convincing in the ascending colon than they are in the transverse colon. Peritoneum: No abnormal intraperitoneal fluid. No free air. Ventral Wall: No hernia. Abdominal Nodes: No retroperitoneal or mesenteric adenopathy by size criteria. Vessels: Aorta and inferior vena cava are normal in size. PELVIS: Pelvic Organs: Uterus is surgically absent.. Bladder: Unremarkable. Pelvic Nodes: No enlarged lymph nodes. Miscellaneous: Small bilateral fat containing inguinal hernias.. 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 Severe bilateral hip degenerative change. S shaped thoracolumbar scoliotic curvature. Old L1 compression fracture. No lytic or blastic bony lesions are identified. IMPRESSION: 1. Findings are highly suspicious for colonic malignancy in the transverse colon. 2. Cannot exclude a 2nd area of malignancy in the ascending colon. Recommend correlation with presumed previous colonoscopy findings. 3. No evidence of metastatic disease in the chest, abdomen, and pelvis. 4. Mild cardiomegaly, severe coronary artery atherosclerotic calcifications. 5. Old L1 compression fracture. Dictated by: Hermilo Herring M.D. on 10/10/2022 at 15:32 Approved by: Hermilo Herring M.D. on 10/10/2022 at 15:45
== END ==
PROVIDERS: PCP Family Medicine; Referring Provider Surgery; Visit Provider Surgery
DX: R19.5 Other fecal abnormalities (principal); I51.7 Cardiomegaly; I25.10 Atherosclerotic heart disease of native coronary artery without angina pectoris; K44.9 Diaphragmatic hernia without obstruction or gangrene; K40.90 Unilateral inguinal hernia, without obstruction or gangrene, not specified as recurrent; M19.011 Primary osteoarthritis, right shoulder; M48.56XA Collapsed vertebra, not elsewhere classified, lumbar region, initial encounter for fracture
CPT/HCPCS: 71260; 74177; Q9967

== ENCOUNTER → 2022-11-12 11:03 | Outpatient (CLI) | payer MEDICARE, SELFPAY ==
[2022-11-12 20:55] LABS: BUN Creatinine Ratio 26.7 (6-22); Blood Urea Nitrogen 23 mg/dL (7-17); Calcium 9.5 mg/dL (8.4-10.2); Carbon Dioxide 28 mmol/L (22-32); Chloride 101 mmol/L (98-107); Estimated Glomerular Filt Rate > 60 mL/min (>60); Glucose 112 mg/dL (80-110); HEMOLYSIS < 15 (0-50); Potassium 4.5 mmol/L (3.4-5.1); Sodium 137 mmol/L (137-145)
== END ==
PROVIDERS: PCP Family Medicine; Visit Provider Family Medicine
DX: E87.6 Hypokalemia (principal)
CPT/HCPCS: 80048

== ENCOUNTER 2022-11-19 06:15 | Inpatient (IN) | payer MEDICARE, SELFPAY ==
[2022-11-04 13:56] VITALS: BMI 27.8
[2022-11-19] VITALS (17 sets, daily range): BP systolic 104–141; BP diastolic 54–85; PULSE 62–90; RESP 11–20; TEMP 36.1–37.3; O2SAT 91–99; BMI 27.8
--- NOTE | 2022-11-19 | PATH_ITS ---
[facility] Accession Number: [id number] No. of containers..01 Tissue . 01 Material submitted: . colon - TERMINAL ILEUM, RIGHT AND TRANSVERSE COLON . 01 Diagnosis: Terminal Ileum, Right And Transverse Colon, Extended Right Hemicolectomy: Medullary carcinoma; please see cancer summary below. . . Procedure: Extended right hemicolectomy. Tumor site: Proximal transverse colon. Histologic type: Medullary carcinoma. Histologic grade: G3, poorly differentiated. Tumor size: 4.7 x 3.4 cm. Tumor extent: Invades through muscularis propria into the pericolonic tissue. Macroscopic tumor perforation: Not identified. Lymphovascular invasion: Not identified. Perineural invasion: Not identified. Treatment effect: No known presurgical therapy. . Margins: Margin status for invasive carcinoma: All margins negative for invasive carcinoma. Distance from invasive carcinoma to closest mucosal margin: Greater than 1 cm. All margins negative for high-grade dysplasia/intramucosal carcinoma, and low-grade dysplasia. . Regional lymph nodes: Present. All regional lymph nodes negative for tumor. Number of lymph nodes examined: 40. Distant metastasis: Not applicable. . Pathologic stage classification (AJCC 8th edition) pT category: pT3. pN category: pN0. . Additional findings: No appendix grossly identified. . Special studies: Loss of nuclear expression of MLH1 and PMS2 by immunohistochemistry, prior case ([id number]). Positive for V600 BRAF mutation V600E (1799T>A) ([id number], [facility], [place], [place]). [facility] 11/27/2022 1602 Local . 01 Comment: Although the mass and pericolonic mass are described grossly as appearing discontinuous, there does not appear to be a distinct separation between the areas microsopically. The two areas are connected by inflammation, tumor necrosis and disorganized collagen, which is interpreted as procedure-related change. The pericolonic mass is favored to represent extention of the primary lesion, rather than metastasis. . 01 Electronically signed: . So Huang MD, Pathologist NPI- [id number] . 01 Gross description: . The specimen is received in formalin labeled with the patient's name, , and terminal ileum, R-transverse colon consists of a right hemicolectomy with attached ileum measuring 5.4 cm in length by 2.1 cm in average diameter, and the colon measuring 31.2 cm in length and ranging from 3.2 to 4.5 cm in diameter. The serosa is pedroza and smooth with a black colored area consistent with tattoo ink measuring 2.7 x 1.6 cm. 2.0 cm proximal to the area of tattoo ink is an area of possible luminal narrowing with the diameter of 1.2 cm. Adjacent to the narrowed area is a firm, pale pedroza mass palpated within the pericolonic fat measuring 3.5 x 3.4 x 1.7 cm. The inked area measures 3.7 cm from the nearest distal margin. The proximal ileal margin is inked blue, the distal colon margin is inked black, the presumed mesenteric/radial margins are inked green (the pericolonic fat is fairly disrupted making identification of the radial margin difficult), and the inked/narrowed area and the fat adjacent to the mass is inked orange. No appendix is grossly identified. A sessile mass is identified adjacent to the tattoo ink and pericolonic mass and measures 4.7 x 3.4 cm, located 2.4 cm from nearest distal margin. The mass extends through the wall and into the pericolonic fat and approaches the orange-inked serosa. The aforementioned mass in the pericolonic fat does not appear to be grossly continuous with the mass. The lesion is widely free from the remaining margins. . A pink-pedroza, soft nodule is identified on the ileocecal valve measuring 2.1 x 1.5 x 1.5 cm, and sectioning reveals a yellow, soft cut surface grossly confined to the mucosa. The remaining mucosa is pedroza and velvety with slightly attenuated folds. The kwan average 0.2 cm thick with no additional polyps or lesions identified. . Palpation of the pericolonic fat reveals 43 lymph node candidates ranging from 0.1 to 0.9 cm in greatest dimension palpated from proximal, middle, and distal thirds. . Brass Reclaimer sections are submitted as follows: A1: Lesion to distal margin perpendicular. A2: Rep blue and green margins en face. A3: Lesion to deepest extension. A4: Lesion to normal. A5-A6: Lesion to pericolonic mass. A7: IC valve nodule. A8: Normal mucosa. A9: Four intact lymph node candidates, proximal third. A10: Four intact lymph node candidates, proximal third. A11: Four intact lymph node candidates, proximal third. A12: Four intact lymph node candidates, proximal third. A13: Three intact lymph node candidates, proximal third. A14: Four intact lymph node candidates, middle third. A15: Three intact lymph nodes candidates, middle third. A16: Two intact lymph node candidates, middle third. A17: Five intact lymph node candidates, distal third. A18: Four intact lymph node candidates, distal third. A19: Three intact lymph node candidates, distal third. A20: Three intact lymph node candidates, distal third. . An additional lymph node candidate is palpated adjacent to the lesion measuring 0.9 cm in greatest dimension. Additional sections are submitted as follows: A21-A22: Mucosal lesion to pericolonic mass. A23: Single bisected lymph node candidate. ([id number]) ([id number]) /MRV 11/27/2022 1602 Local . 01 Pathologist provided ICD-10: C18.4 . 01 CPT . 572855 Specimen Comment: A courtesy copy of this report has been sent to [phone] Performed at: 01 [facility] [address] [place] [address] [id number] MD Grzegorz Hyman MD Phone: [phone]
[2022-11-19] MEDS: LACTATED RINGERS 1,000 ML 100 ML IV ×2 (06:43→10:26)
--- NOTE | 2022-11-19 08:15 | PM.PREOP ---
Pre-operative Note COVID-19 COVID-19 status: Not tested Interval Note History & Physical reviewed/Exam performed by Physician: Yes Changes to H&P: No ASA Class (for procedural sedation): III
[2022-11-19] MEDS: fentaNYL 100 MCG/2 ML INJ 50 MCG IV (08:22)
--- NOTE | 2022-11-19 08:24 | SUR.PREOP ---
Patient c/o back pain, chronic; notified Anesthesiology; okay to provide IV fentanyl for patient since patient's surgery delayed due to complication regarding another patient. Placed patient on case monitor and oxygen at 2 liters via nasal cannula.
[2022-11-19] MEDS: AMPICILLIN/SULBACTAM 3 GM 3 GM in SODIUM CHLORIDE 0.9% 100 ML IV (08:45)
--- NOTE | 2022-11-19 09:34 | SUR.OPER ---
Supine on padded OR bed with pink pad anti slip foam, head on pillow, arms padded and tucked at sides, legs uncrossed, safety belt at thigh, tape over blanket over lower legs .
[2022-11-19] MEDS: BUPIVACAINE 0.5% (PF) 30 ML, EPINEPHrine 0.15 MG INJ (09:40)
--- NOTE | 2022-11-19 11:57 | PM.OP.1 ---
Operative Date/Time/Diagnoses Date of procedure: 11/19/22 Time of procedure: 11:57 Pre-op diagnosis: Transverse colon cancer Post-op diagnosis: same Procedure & Clinicians Procedure: Laparoscopic-assisted extended right hemicolectomy Same procedure as scheduled: Yes Surgeon: Harley Vital Die Casting Machine Setter: Wyatt Wilkinson Anesthesia Type: General Operative Notes Procedure in detail: Operation: Laparoscopic assisted extended right hemicolectomy Surgeon: Shannon CHARLES Die Casting Machine Setter: Wyatt PURVIS provided assistance with exposure, retraction and closure of incisions. Anesthesia: General endotracheal anesthesia The patient is an 79-year-old woman who presented with a positive fit test. She then underwent a colonoscopy which revealed a tumor in the proximal transverse colon that came back as invasive adenocarcinoma. She was consented for a laparoscopic assisted extended right hemicolectomy. Unasyn was administered. The patient was brought to the operating room and placed on the table in the supine position. General endotracheal anesthesia was induced. A Chapa catheter was placed. The abdomen was prepped and draped in the usual fashion and a time-out was performed. A 1 cm supraumbilical incision was created. Dissection was carried down to the fascia which was scored in the midline with cautery. The peritoneum was pierced with a Peon clamp. A Yudelka port was placed and the abdomen was insufflated to 15 mmHg. The camera was inserted and there was no evidence of any injury from the entry. 5 mm ports were placed in the right upper quadrant, right lower quadrant, left upper quadrant and subxiphoid positions under direct vision. We explored the abdomen. The tattoo ink was visible proximal and distal to the tumor in the transverse colon near the upper midline. There was no evidence metastatic disease in the abdominal cavity. We started dissecting the omentum off of the transverse colon. We carefully dissected the right transverse mesocolon off of duodenum staying in the natural cleavage plane. We then took down the hepatic flexure and the right colon in the same plane. We then mobilized the cecum and the mesentery to the terminal ileum off of the sidewall. Once the bowel was sufficiently mobilized we removed the laparoscopic equipment and created a 7 cm supraumbilical incision. A small Nikita retractor was placed into the wound and the right colon was exteriorized. We then created mesenteric windows along the mesenteric border of terminal ileum and another along the mid transverse colon. The middle colic artery and vein were dissected and ligated with 0 silk sutures. The ileocolic artery and vein were also dissected free and ligated between 0 silk sutures. The rest of the mesentery was taken down with the power seal. We then lined up the terminal ileum and transverse colon and a 3-0 silk stitch was placed at the crotch. Blue towels were placed around the bowel and enterotomies were created. A [id number] functional end-to-end anastomosis was created using the 75 mm linear MARCELINA stapler with blue loads. Multiple interrupted 3-0 silk sutures were used to imbricate the staple line. The anastomosis appeared well perfused and patent and allowed to fall back into the right abdomen. We then injected Marcaine into the plane above and below the fascia. The fascia was then closed with a running 0 PDS suture supported by multiple interrupted 0 Vicryl internal retention sutures. The skin incisions were closed felix. EBL: 30 mL Specimen: Omentum, terminal ileum, appendix, right colon and a portion of the transverse colon. Post-operative Condition: stable Disposition: PACU
[2022-11-19] MEDS: LACTATED RINGERS 1,000 ML 75 ML IV (13:15)
[2022-11-19] MEDS: HYDROCODONE/ACET 5/325 TABLET 1 TAB PO ×2 (15:40→20:31)
[2022-11-19] MEDS: METOPROLOL ER 50 MG TABLET PO (15:41)
[2022-11-19] MEDS: TRAZODONE 50 MG TABLET PO (20:30)
[2022-11-19] MEDS: HYDROMORPHONE 0.5 MG INJ 0.25 MG IV (20:31)
[2022-11-20] MEDS: HYDROCODONE/ACET 5/325 TABLET 1 TAB PO ×5 (00:32→23:26)
[2022-11-20] MEDS: LACTATED RINGERS 1,000 ML 75 ML IV (01:35)
[2022-11-20] MEDS: HYDROMORPHONE 0.5 MG INJ 0.25 MG IV (02:05)
[2022-11-20 05:31] LABS: Add Manual Diff / Slide Review NO; Basophils Absolute Auto 0 /uL (0-100); Basophils Percent Auto 0.2 % (0-2); Eosinophils Absolute Auto 0 /uL (0-450); Hematocrit 29.4 % (36-46); Hemoglobin 10.1 g/dL (12.0-16.0); Lymphocytes Absolute Auto 900 /uL (1100-4500); Lymphocytes Percent Auto 9.5 % (25-40); Mean Corpuscular HGB Conc 34.2 % (30-36); Mean Corpuscular Hemoglobin 32.3 PG (26-34); Mean Corpuscular Volume 94.4 fL (80-100); Monocytes Absolute Auto 700 /uL (0-900); Monocytes Percent Auto 7.9 % (3-14); Neutrophils Absolute Auto 7400 /uL (1500-7000); Neutrophils Percent Auto 82.4 % (50-75); Platelet Count 148 X10^3/uL (150-400); Red Blood Cell Count 3.11 X10^6/uL (4.0-5.2)
[2022-11-20 05:37] LABS: Alanine Aminotransferase 19 IU/L (<35); Albumin Globulin Ratio 1.1 (1.0-2.8); Alkaline Phosphatase 48 U/L (38-126); Aspartate Aminotransferase 26 IU/L (14-36); Blood Urea Nitrogen 13 mg/dL (7-17); Calcium 7.8 mg/dL (8.4-10.2); Carbon Dioxide 27 mmol/L (22-32); Chloride 106 mmol/L (98-107); Estimated Glomerular Filt Rate > 60 mL/min (>60); Globulin 2.7 g/dL (1.7-4.1); Glucose 117 mg/dL (80-110); HEMOLYSIS < 15 (0-50); Potassium 3.6 mmol/L (3.4-5.1); Sodium 138 mmol/L (137-145); Total Protein 5.7 g/dL (6.3-8.2)
[2022-11-20 08:00] VITALS: BP 124/65; PULSE 52; RESP 18; TEMP 36.7; O2SAT 96
[2022-11-20 08:07] VITALS: PULSE 52
[2022-11-20] MEDS: IBUPROFEN 600 MG TABLET PO ×2 (08:08→17:12)
--- NOTE | 2022-11-20 09:15 | P.PN_ITS ---
Subjective Subjective Date Patient Seen: 11/20/22 Time Patient Seen: 09:15 Interval history: Harmony feels well today. She would like to eat real food. Her heart rate has been in the 50s. Exam Vital Signs (past 8 hours): - 11/20/22 08:07 Pulse Rate 52 L Fraction of Inspired Oxygen 28 SaO2/FiO2 Ratio 335 Oxygen Delivery Method Nasal Cannula Oxygen Flow Rate 2 Narrative Exam Narrative: Abdomen soft, dressings are clean dry and intact Objective Labs 11/20/22 04:52 11/20/22 04:52 Labs: Laboratory Results - last 24 hr 11/20/22 11/20/22 04:52 04:52 WBC 9.0 RBC 3.11 L Hgb 10.1 L Hct 29.4 L MCV 94.4 MCH 32.3 MCHC 34.2 RDW 15.0 H Plt Count 148 L Neut % (Auto) 82.4 H Lymph % (Auto) 9.5 L Loup % (Auto) 7.9 Eos % (Auto) 0.0 L Baso % (Auto) 0.2 Neut # (Auto) 7400 H Lymph # (Auto) 900 L Loup # (Auto) 700 Eos # (Auto) 0 Baso # (Auto) 0 Sodium 138 Potassium 3.6 Chloride 106 Carbon Dioxide 27 BUN 13 Creatinine 0.62 Estimated GFR > 60 BUN/Creatinine Ratio 21.0 Glucose 117 H Calcium 7.8 L Total Bilirubin 1.0 AST 26 ALT 19 Alkaline Phosphatase 48 Total Protein 5.7 L Albumin 3.0 L Globulin 2.7 Albumin/Globulin Ratio 1.1 [facility] Medical History (Updated 11/04/22 @ 15:40 by Napoleon Madison MD) Cervical spine disease GERD (gastroesophageal reflux disease) Hiatal hernia Hyperlipidemia Insomnia Lumbar spine pain Memory loss Right sided weakness Surgical History H/O arthroscopy of right knee S/P total abdominal hysterectomy and bilateral salpingo-oophorectomy Status post laminectomy Family History Brother Cancer Father Lung cancer Mother Rectal cancer Social History marital status: household members: family Smoking Status: Former smoker alcohol intake: current substance use type: does not use Assessment & Plan Assessment and plan (1) Colon cancer: Qualifiers: Colon location: transverse Qualified Code(s): 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 We will hold metoprolol for heart rate under 60 Discontinue Chapa catheter Start Lovenox Quality VTE Deep Vein Thrombosis/Pulmonary Embolism Present on Admission: No
--- NOTE | 2022-11-20 12:05 | CM.DANOTE ---
Patient is an 87 yo female who was admitted on 11/19/22 for Lap Hemicolectomy. Pt has [facility] for insurance and her PCP is Napoleon Madison. EMR was reviewed. Per Surgeon, pt tolerated procedure well from transverse colon CA. SW met bedside with pt and explained role and she confirms she lives on [address] alone and is active and independent at baseline and also has her adult Dtr Javi who lives on [address] as well and supportive. Pt states she has not completed DPOA pwk but informally her Dtr Javi is her DPOA as her Dtr works in the healthcare field. Pt denies hx of HH or SNF and does not typically use DME for ambulation and she does not drive much. Pt is tolerating general diet and finished her breakfast and states her plan is to attempt voiding independently today and that she will discharge to her adult son Brandon's house in [place] for a week or so before returning to [facility]. Pt currently does not anticipate any needs at d/c since her son is available for assist. Plan: SW to follow closely in the AM to confirm safe plan of home to son's house in [place] and any further identified discharge planning needs. ROGER Todd Discharge Planning/Care Management CM Discharge Assessment Start: 11/20/22 12:03 Freq: Status: Active Protocol: Document 11/20/22 12:03 (Rec: 11/20/22 12:05 [id number]) Discharge Planning Assessment Assigned Custom Leather Products Maker ROGER Joe DPOA/Assigned Designee [facility] Contact Information [phone] Advance Directives? No Advance Directives on File No History Provided By Patient,Medical Record Has Patient been admitted in last 30 No days? Prior Living Arrangements House Household Members none Comment Has local Dtr and son Type of transporation used prior to Relies on Others admit Independent with ADL's Yes Is patient alert and oriented? Yes Needs Assistance With Home Chores / Shopping Caregiver for Another No Barriers to Discharge No Discharge Plan Home Transportation Arrangement Son in [place] and plans to transport pt to his home at d/ c Referrals Initiated None needed Whiteboard Updated in Patient Room with Yes name and ext. # of Custom Leather Products Maker Review Status In Process Please Provide Date Initial DC 11/20/22 Assessment Was Performed Next Review Type Continued Stay Review Pre-Anesthesia Assessment Start: 11/04/22 13:56 Freq: Status: Complete Protocol: Document 11/04/22 13:56 HEAVEN (Rec: 11/04/22 14:42 HEAVEN [id number]) Pre-Anesthesia Assessment Patient Information Reviewed Via Phone Assessment Assessment Completed With Patient,Child H&P Completed Within 30 Days Yes: 10/30/22 Diagnostic Results BMP/CMP,CBC Comment EKG ordered by Dr. Vital Primary Care Provider Napoleon Madison Medical Clearance Received No Seen Specialist in Last 12 Months Yes Specialist Seen General surgeon Preferred Language Greek Height 166.37 cm Weight 77.111 kg Body Mass Index (BMI) 27.8 Hearing Ability Hearing Impaired Visual Impairment Partially Limited Visual Assist Glasses Dentition Type Teeth, Natural Present Barriers to Learning None Hx Anesthesia Reactions No Hx Family Anesthesia Reaction No Hx Malignant Hyperthermia No Hx Blood Transfusions No Hx Blood Transfusion Reaction No Anesthesia Review Requested No Director Digital Analytics No alcohol intake current alcohol intake frequency holidays/special occasions only Smoking Status Former smoker how long ago did patient quit smoking 1960s Substance Use Type does not use Pain Present Pain Reported Comment all over pain-mosly neck, back Musculoskeletal Symptoms Back Pain,Joint Pain History of Falling (Recent or History of Yes ) Patient is completely paralyzed or No completely immobile Ambulatory Aid None/bed rest/nurse assist Gait/Transferring Normal/bedrest/immobile Mental Status Oriented to own ability Is patient on oxygen? No Does patient have REED/SOB Yes Hx Sleep Apnea No CPAP/BIPAP use not prescribed Currently Taking a Beta Flora Yes: Metoprolol Can You Climb a Flight of Stairs Without Yes SOB Hx Chest Pain No Hx SOB Yes: has discussed with PCP Hx Syncope or Dizziness No Anti-Coagulant Therapy Yes: Aspirin Has a Cardiac Rehabilitation Specialist No Cardiac Testing No Hx Pacemaker/ICD No Diet Type At Home Regular Dysphagia No Gastrointestinal Symptoms Constipation Bladder Pattern Incontinent,Nocturia Urinary Catheter Present No Hx Urinary Self Catheterization No Diabetes No HgbA1C 5.9 Date 07/08/22 Patient No Lactating No Hx Drug Resistant Organism No Presence of External or Internal Medical No Devices Have you had any close contact with No someone diagnosed with COVID-19? Are you experiencing any of these No symptoms symptoms? Received a COVID vaccine? Yes Lives With family Support System Child/Children Does the Patient Have Assistance After Yes Surgery Patient Discharge Plan Description Return Home Feels Safe in Current Environment Yes Been Physically Hurt or Threatened By a No Person in Current Environment Do you have thoughts of harming yourself None or others? Are you currently considering suicide? No Do you have a plan to hurt yourself or No Plan others? Do You Have Any Spiritual Beliefs That No May Affect Your HC Choices? Do You Have Any Cultural Practices That No May Affect Your HC Choices? Who Can We Speak to About Patient's Care Brandon Mcneil Identifying Code for Release of Patient declined Information Health Care Proxy/Next of Kin Brandon Mcneil Health Care Proxy /[phone] Emergency Contact Name Brandon Bull/Javi Mcneil Emergency Contact /[phone] Advance Directives? No Power of Vp Delivery No PAC Instructions Assistance for 24 hours post- op,Do not shave/clip surgical site,Durable medical equipment ,Medications to take/avoid,No ETOH/petroleum product on skin DOS,Post-op transportation, Pre-surgical wash,Sensory aids ,Sturdy shoes/comfortable clothes,Do not bring valuables and remove jewelry
[2022-11-20] MEDS: ENOXAPARIN 40 MG/0.4 ML SYRINGE SUBCUT (17:11)
[2022-11-20 17:45] VITALS: BP 136/55; PULSE 58; RESP 16; TEMP 37.2; O2SAT 94
[2022-11-20 19:54] VITALS: BP 119/47; PULSE 61; RESP 20; TEMP 36.5; O2SAT 93
[2022-11-20] MEDS: TRAZODONE 50 MG TABLET PO (21:17)
[2022-11-20] MEDS: ACETAMINOPHEN 325 MG TABLET 650 MG PO (21:22)
[2022-11-21] MEDS: HYDROCODONE/ACET 5/325 TABLET 1 TAB PO ×3 (05:42→15:51)
[2022-11-21 07:00] VITALS: BP 120/58; PULSE 59; RESP 18; TEMP 36.5; O2SAT 93
[2022-11-21] MEDS: ENOXAPARIN 40 MG/0.4 ML SYRINGE SUBCUT (09:29)
[2022-11-21] MEDS: IBUPROFEN 600 MG TABLET PO (09:29)
--- NOTE | 2022-11-21 14:59 | CM.DPC ---
DCP Continued: SCHOOL OPERATIONS MANAGER reviewed EMR. Per yesterday PN, working on advancing her diet today. SCHOOL OPERATIONS MANAGER entered room and introduced self and role. Patient accompanied at bedside by daughter and son. Patient appeared A/Ox4 however was mostly quiet during interaction. D/c plan mostly lead by daughter. Daughter and son confirm plan is to d/c home with son for a week or so until family feels comfortable enough for patient to return to [place]. Family concerned with ferry priority boarding pass. SCHOOL OPERATIONS MANAGER informed that theoretically we can help facility priority boarding from d/c from hospital, but future priority boarding passes would have to be through [facility] office. Plan: patient to d/c home with son when medically stable. CM team will continue to follow closely for additional needs/ferry boarding pass needs. ROGER Schumacher
--- NOTE | 2022-11-21 15:27 | P.PN_ITS ---
Subjective Subjective Date Patient Seen: 11/21/22 Time Patient Seen: 15:27 Interval history: Harmony feels well today. She has tolerated regular diet and she is passing plenty of flatus. Pain is reasonably well controlled if she is not moving too much. Exam Vital Signs (past 8 hours): Fraction of Inspired Oxygen 28 SaO2/FiO2 Ratio 335 Oxygen Delivery Method Room Air Oxygen Flow Rate 0 Narrative Exam Narrative: Abdomen soft, nontender Dressings are in place The midline incision is clean dry and intact Objective Labs 11/20/22 04:52 11/20/22 04:52 [facility] Medical History (Updated 11/21/22 @ 15:28 by Harley Vital MD) Cervical spine disease GERD (gastroesophageal reflux disease) Hiatal hernia Hyperlipidemia Insomnia Lumbar spine pain Memory loss Right sided weakness Surgical History H/O arthroscopy of right knee S/P total abdominal hysterectomy and bilateral salpingo-oophorectomy Status post laminectomy Family History Brother Cancer Father Lung cancer Mother Rectal cancer Social History marital status: household members: none Smoking Status: Former smoker alcohol intake: current substance use type: does not use Assessment & Plan Assessment and plan (1) Postoperative examination: Status: Acute Plan Although she is tolerating a regular diet and passing flatus I think she should stay at least 1 more day given her age. Quality VTE Deep Vein Thrombosis/Pulmonary Embolism Present on Admission: No
[2022-11-21 16:32] VITALS: BP 139/81; PULSE 66
[2022-11-21 19:00] VITALS: BP 141/72; PULSE 63; RESP 20; TEMP 36.3; O2SAT 94
[2022-11-21] MEDS: LOSARTAN 25 MG TABLET PO (21:23)
[2022-11-21] MEDS: TRAZODONE 50 MG TABLET PO (21:23)
[2022-11-21] MEDS: HYDROCODONE/ACET 5/325 TABLET 2 TAB PO (21:23)
[2022-11-22] MEDS: HYDROCODONE/ACET 5/325 TABLET 1 TAB PO ×4 (01:39→16:22)
[2022-11-22 07:55] VITALS: BP 157/80; PULSE 75; RESP 17; TEMP 36.4; O2SAT 93
[2022-11-22] MEDS: METOPROLOL ER 50 MG TABLET PO (08:43)
[2022-11-22] MEDS: ENOXAPARIN 40 MG/0.4 ML SYRINGE SUBCUT (08:43)
[2022-11-22] MEDS: LOSARTAN 25 MG TABLET PO (08:43)
--- NOTE | 2022-11-22 12:03 | CM.DPC ---
DCP Continued: Per RN, patient wants to d/c home today. Provider aware and will likely d/c this afternoon. PRESCHOOL DIRECTOR entered room and introduced self and role. Patient accompanied by daughter at bedside. Both report eager to d/c home. Continues to report no needs from CM team at this time. Plan: home with family in [place]. No additional needs from CM team at this time. CM team will continue to follow as needed. ROGER Schumacher
--- NOTE | 2022-11-22 16:38 | P.PN_ITS ---
Subjective Subjective Date Patient Seen: 11/22/22 Time Patient Seen: 17:05 Interval history: Patient doing really well has been walking in the house 3 times today tolerating regular food denies any nausea had diarrhea like bowel movement a few days ago nothing today but is passing gas does not feel distended pain is controlled and located at the incision. Exam Vital Signs (past 8 hours): Fraction of Inspired Oxygen 28 SaO2/FiO2 Ratio 335 Oxygen Delivery Method Room Air Oxygen Flow Rate 0 Narrative Exam Narrative: She is awake alert oriented and in no acute distress comfortable in bed. The wounds are clean dry and intact closed with felix. Objective Labs 11/20/22 04:52 11/20/22 04:52 [facility] Medical History (Updated 11/21/22 @ 15:28 by Harley Vital MD) Cervical spine disease GERD (gastroesophageal reflux disease) Hiatal hernia Hyperlipidemia Insomnia Lumbar spine pain Memory loss Right sided weakness Surgical History H/O arthroscopy of right knee S/P total abdominal hysterectomy and bilateral salpingo-oophorectomy Status post laminectomy Family History Brother Cancer Father Lung cancer Mother Rectal cancer Social History marital status: household members: none Smoking Status: Former smoker alcohol intake: current substance use type: does not use Assessment & Plan Post-op Postoperative Procedures: Procedures Operation Date: 11/19/22 07:45 Actual Procedure Side Surgeon p Laparoscopic Assisted Hemicolectomy Right Harley Vital MD Postoperative day: 3 Postoperative status: doing well Postoperative plan: discharge Time Spent With Patient Time with patient: less than 15 minutes Quality VTE Deep Vein Thrombosis/Pulmonary Embolism Present on Admission: No
--- NOTE | 2022-11-22 17:06 | P.DS_ITS ---
History of Present Illness History of Present Illness Date Patient Seen: 11/22/22 Time Patient Seen: 17:06 Chief complaint: INPT Narrative: Harmony presents with her son and daughter.? She had a colonoscopy on October 03 for a positive FIT test.? A large mass was found in the proximal transverse colon which came back as invasive adenocarcinoma.? She had a CT scan which showed no evidence of distant metastatic disease. She underwent a lap assisted extended right hemicolectomy 11/19/2022. Her postoperative course was relatively unremarkable and on 11/22/2022 her pain was controlled with oral pain medicines she was walking in the halls with her walker and tolerating regular food. Discharge Providers Provider Date of admission: 11/19/22 06:15 Discharge Date: 11/22/22 Primary care physician: Napoleon Madison MD Discharge provider: Eleanor Valdez MD Exam Vital Signs (past 8 hours): Fraction of Inspired Oxygen 28 SaO2/FiO2 Ratio 335 Oxygen Delivery Method Room Air Oxygen Flow Rate 0 Narrative Exam Narrative: See progress note from today. Awake alert oriented no acute distress. Wounds clean dry and intact tacking felix in place. Objective Labs 11/20/22 04:52 11/20/22 04:52 [facility] Medical History (Updated 11/21/22 @ 15:28 by Harley Vital MD) Cervical spine disease GERD (gastroesophageal reflux disease) Hiatal hernia Hyperlipidemia Insomnia Lumbar spine pain Memory loss Right sided weakness Surgical History H/O arthroscopy of right knee S/P total abdominal hysterectomy and bilateral salpingo-oophorectomy Status post laminectomy Family History Brother Cancer Father Lung cancer Mother Rectal cancer Social History marital status: household members: none Smoking Status: Former smoker alcohol intake: current substance use type: does not use Discharge Assessment & Plan Assessment and Plan Assessment: Doing well Plan of Treatment: Discussed postoperative care wound care reasons to contact provider contact phone numbers and information for the weekend as well as follow-up instructions with the patient and her daughter who was at the bedside. They understood. Discharged home in good condition Discharge Plan Discharge Plan Patient Disposition: Home Provider Discharge Comment: No lifting greater than 20 lb for 2 weeks. Okay to remove the outer dressing and shower after 24 hours. Leave the Steri-Strips on until they start to peel off in 1-2 weeks. Discharge orders & Medications Prescriptions: New hydrocodone-acetaminophen 5-325 mg tablet 1 tab PO Q8H PRN (Reason: pain) Qty: 14 0RF Continued Centrum Silver 0.4-300-250 mg-mcg-mcg tablet 1 tab PO DAILY atorvastatin 20 mg tablet See Rx Instructions .ROUTE .COMPLEX Qty: 90 3RF Dose Instruction: take 1 tablet by mouth once daily Rx Instructions: take 1 tablet by mouth once daily metoprolol succinate 50 mg tablet extended release 24 hr See Rx Instructions .ROUTE .COMPLEX Qty: 90 3RF Dose Instruction: take 1 tablet by mouth once daily Rx Instructions: take 1 tablet by mouth once daily amlodipine 10 mg tablet 10 mg PO DAILY Qty: 90 3RF hydrocodone-acetaminophen 5-325 mg tablet See Rx Instructions PO BID PRN (Reason: pain) Qty: 112 0RF Rx Instructions: Must last 28 days. Release date 11/04/22 Take 1-2 tablets twice daily as needed for pain metronidazole 500 mg tablet 500 mg PO TID Qty: 3 0RF Rx Instructions: administer at 1 PM, 2 PM, and 10 PM the day prior to surgery potassium chloride 20 mEq packet 20 meq PO DAILY Qty: 30 0RF trazodone 50 mg tablet 50 - 100 mg PO BEDTIME aspirin 81 mg Capsule 81 mg PO DAILY losartan 50 mg tablet 50 mg PO BID clotrimazole-betamethasone 1-0.05 % cream 1 applic topical BID PRN (Reason: Rash) naproxen sodium [Aleve] 220 mg Capsule 220 mg PO Q6H Follow up/Referrals: Harley Vital MD [Physician] - Napoleon Madison MD [Primary Care Provider] - Diet/Activity/Treatments Diet: Diet as Tolerated and Regular Visit Report/Discharge Packet Instructions: DI for Colectomy, DI for Laparoscopy, How to Prevent Falls, DI for Prescription Opioid Use, DI for Taking Pain Medication, [facility]: Wound Care Stand Alone Forms: Patient Portal/API, Stroke Signs & Symptoms Discharge Data Primary Care Provider: Napoleon Madison Quality VTE Deep Vein Thrombosis/Pulmonary Embolism Present on Admission: No
--- NOTE | 2022-11-22 17:50 | PC.NURSE ---
Discharge: D/c instructions given by MD MELVIN removed midline dressing and bandaids. All areas are stapled. The felix are c/d/i. No drainage of redness seen. Pt given some gauze to cover the site. Reviewed d/c packet and understood. RX has been called in and pt and dtr are aware. Pt will be staying in town with son for a couple of weeks. She is voiding w/out diff. Tolerates diet w/out problems. Has had a few watery stools. Discussed diet. Po pain meds are effective. Pt and dtr feel ready for d/c to home. Cont w/poc.
== END 2022-11-22 18:00 | disposition home or self-care (01) | DRG 331 ==
PROVIDERS: Admitting Provider Surgery; PCP Family Medicine; Referring Provider Surgery; Visit Provider Surgery
PROC: 0DTE0ZZ Resection of Large Intestine, Open Approach (ICD-10-PCS; principal; 2022-11-19 07:45)
DX: C18.4 Malignant neoplasm of transverse colon (principal); K21.9 Gastro-esophageal reflux disease without esophagitis; Z87.891 Personal history of nicotine dependence
CPT/HCPCS: 36415; 44205; 80053; 85025; 94762; J0171; J0295; J0330; J1100; J1170; J1650; J2405; J2704; J3010

== ENCOUNTER → 2022-12-05 09:06 | Outpatient (CLI) | payer MEDICARE, SELFPAY ==
[2022-11-19 13:11] VITALS: BMI 27.8
[2022-12-05 09:51] LABS: Add Manual Diff / Slide Review NO; Basophils Absolute Auto 0 /uL (0-100); Basophils Percent Auto 0.4 % (0-2); Eosinophils Absolute Auto 100 /uL (0-450); Eosinophils Percent Auto 1.1 % (2-4); Hematocrit 35.6 % (36-46); Hemoglobin 12.1 g/dL (12.0-16.0); Lymphocytes Absolute Auto 1300 /uL (1100-4500); Lymphocytes Percent Auto 18.1 % (25-40); Mean Corpuscular Hemoglobin 32.4 PG (26-34); Mean Corpuscular Volume 95.2 fL (80-100); Monocytes Absolute Auto 400 /uL (0-900); Monocytes Percent Auto 5.8 % (3-14); Neutrophils Absolute Auto 5500 /uL (1500-7000); Neutrophils Percent Auto 74.6 % (50-75); Platelet Count 264 X10^3/uL (150-400); Red Blood Cell Count 3.74 X10^6/uL (4.0-5.2); Red Cell Distribution Width 14.6 % (11.6-14.8); White Blood Cell Count 7.4 X10^3/uL (4.5-11.0)
[2022-12-05 09:55] LABS: Alanine Aminotransferase 22 IU/L (<35); Albumin Globulin Ratio 1.5 (1.0-2.8); Alkaline Phosphatase 79 U/L (38-126); Aspartate Aminotransferase 25 IU/L (14-36); BUN Creatinine Ratio 19.7 (6-22); Bilirubin Total 1.2 mg/dL (0.2-1.3); Blood Urea Nitrogen 15 mg/dL (7-17); Calcium 9.9 mg/dL (8.4-10.2); Carbon Dioxide 31 mmol/L (22-32); Chloride 102 mmol/L (98-107); Estimated Glomerular Filt Rate > 60 mL/min (>60); Globulin 2.7 g/dL (1.7-4.1); Glucose 112 mg/dL (80-110); HEMOLYSIS < 15 (0-50); Sodium 140 mmol/L (137-145); Total Protein 6.7 g/dL (6.3-8.2)
[2022-12-05 10:27] LABS: Carcinoembryonic Antigen 4.1 ng/mL (0.1-3.0)
== END ==
PROVIDERS: PCP Family Medicine; Referring Provider Surgery; Visit Provider Surgery
DX: Z85.038 Personal history of other malignant neoplasm of large intestine (principal)
CPT/HCPCS: 36415; 80053; 82378; 85025

== ENCOUNTER → 2023-03-25 09:26 | Outpatient (CLI) | payer MEDICARE, SELFPAY ==
[2022-11-19 13:11] VITALS: BMI 27.8
[2023-03-25 19:50] LABS: Add Manual Diff / Slide Review NO; Basophils Absolute Auto 0 /uL (0-100); Basophils Percent Auto 0.8 % (0-2); Eosinophils Absolute Auto 100 /uL (0-450); Eosinophils Percent Auto 1.9 % (2-4); Hematocrit 36.4 % (36-46); Hemoglobin 12.3 g/dL (12.0-16.0); Lymphocytes Absolute Auto 1700 /uL (1100-4500); Lymphocytes Percent Auto 26.4 % (25-40); Mean Corpuscular HGB Conc 33.9 % (30-36); Mean Corpuscular Volume 97.4 fL (80-100); Monocytes Absolute Auto 300 /uL (0-900); Monocytes Percent Auto 4.9 % (3-14); Neutrophils Absolute Auto 4300 /uL (1500-7000); Platelet Count 169 X10^3/uL (150-400); Red Blood Cell Count 3.74 X10^6/uL (4.0-5.2); Red Cell Distribution Width 14.1 % (11.6-14.8); White Blood Cell Count 6.5 X10^3/uL (4.5-11.0)
[2023-03-25 19:56] LABS: Alanine Aminotransferase 19 IU/L (<35); Albumin Globulin Ratio 1.3 (1.0-2.8); Alkaline Phosphatase 65 U/L (38-126); Aspartate Aminotransferase 31 IU/L (14-36); BUN Creatinine Ratio 23.2 (6-22); Bilirubin Total 1.2 mg/dL (0.2-1.3); Blood Urea Nitrogen 19 mg/dL (7-17); Carbon Dioxide 30 mmol/L (22-32); Chloride 101 mmol/L (98-107); Cholesterol 126 mg/dL (140-199); Estimated Glomerular Filt Rate > 60 mL/min (>60); Globulin 3.1 g/dL (1.7-4.1); Glucose 94 mg/dL (80-110); HDL Cholesterol 57 mg/dL (40-60); HEMOLYSIS < 15 (0-50); LDL Cholesterol Calculated 54 mg/dL (<100); Potassium 3.8 mmol/L (3.4-5.1); Sodium 138 mmol/L (137-145); Total Protein 7.1 g/dL (6.3-8.2); Triglycerides 76 mg/dL (35-150)
[2023-03-25 20:07] LABS: Hemoglobin A1C% w Est Avg Glu 5.4 % (4.0-6.0)
[2023-03-25 20:26] LABS: TSH w/ Reflex to FT4 1.51 uIU/mL (0.47-4.68)
[2023-03-25 20:43] LABS: Vitamin B12 608 pg/mL (239-931)
== END ==
PROVIDERS: PCP Family Medicine; Visit Provider Family Medicine
DX: E87.6 Hypokalemia (principal); Z86.73 Personal history of transient ischemic attack (TIA), and cerebral infarction without residual deficits; E80.4 Gilbert syndrome; Z79.891 Long term (current) use of opiate analgesic; I10 Essential (primary) hypertension; G62.9 Polyneuropathy, unspecified; R73.03 Prediabetes; D64.9 Anemia, unspecified; I25.10 Atherosclerotic heart disease of native coronary artery without angina pectoris; E78.5 Hyperlipidemia, unspecified
CPT/HCPCS: 80053; 80061; 82607; 83036; 84443; 85025